=== PATIENT | female | born 1985 | race Hispanic/Latino ===

== ENCOUNTER 2018-08-18 19:22 | Emergency (ER) | payer OTHER ==
[2018-08-18 20:25] LABS: #Basophils 0.1 thou/uL (0.0-0.2); #Eosinphils 0.1 thou/uL (0.0-0.7); #Lymphocytes 3.2 thou/uL (1.20-3.40); #Neutrophils 9.1 thou/uL (1.40-6.50); %Basophils 0.8 % (0.0-1.0); %Eosinophils 0.8 % (0.0-10.0); %Lymphocytes 23.5 % (21.0-51.0); %Monocytes 7.6 % (0.0-10.0); %Neutrophils 67.4 % (42.0-75.0); Hemoglobin 11.9 g/dL (12.0-16.0); Mean Corpuscular HGB CONC 33.1 g/dL (32.0-36.0); Mean Corpuscular Hemoglobin 29.6 pg (27.0-31.0); Mean Corpuscular Volume 89.6 fL (78.0-98.0); Mean Platelet Volume 7.6 fL (7.4-10.4); Platelet Count 263 thou/uL (130-400); RBC Distribution Width 13.3 % (11.5-14.5); Red Blood Cell (RBC) Count 4.01 mill/uL (4.20-5.40); White Blood Cell (WBC) Count 13.6 thou/uL (4.8-10.8)
[2018-08-18 20:47] LABS: ALT (SGPT) 12 U/L (8-55); AST (SGOT) 15 U/L (5-34); Albumin 3.5 g/dL (3.5-5.0); Alkaline Phosphatase 86 U/L (40-150); Anion Gap 13 mmol/L (10-20); BUN (Urea Nitrogen) 7 mg/dL (7.0-18.7); Bilirubin, Total Less than 0.2 mg/dL (0.2-1.2); Calc. Creatinine Clearance 0 mL/min (70-130); Calcium 9.3 mg/dL (7.8-10.44); Carbon Dioxide 22 mmol/L (22-29); Chloride 103 mmol/L (98-107); Estimated GFR-MDRD Greater than 90; Globulin 3.5 g/dL (2.4-3.5); Glucose 122 mg/dL (70-105); Potassium 3.8 mmol/L (3.5-5.1); Sodium 134 mmol/L (136-145)
[2018-08-18] MEDS ORDERED: Acetaminophen 500 MG TAB ONE (22:58)
[2018-08-18 23:16] LABS: Bilirubin Negative (Negative); Blood, Urine Negative (Negative); Clarity CLOUDY (Clear); Glucose, Urine (Dipstick) Negative (Negative); Leukocyte Negative (Negative); Nitrite Negative (Negative); Protein, Urine (Dipstick) Negative (Neg-Trace); Specific Gravity, Urine 1.011 (1.002-1.036); Urobilinogen 0.2 mg/dL (0.2-1.0); pH, Urine 6.5 (5.0-9.0)
== END 2018-08-18 23:34 | disposition home or self-care (01) ==
LOC: ERS 19:22
DX: R51 Headache (principal)
CPT/HCPCS: 36415; 80053; 81003; 85025; 87086; 87804; 99284

== ENCOUNTER 2018-08-30 07:04 | Day surgery (SDC) | payer OTHER ==
[2018-08-30 08:25] VITALS: BMI 26.6
[2018-08-30 08:44] LABS: Bilirubin Negative (Negative); Blood, Urine Negative (Negative); Clarity CLEAR (Clear); Glucose, Urine (Dipstick) Negative (Negative); Leukocyte Negative (Negative); Nitrite Negative (Negative); Protein, Urine (Dipstick) Negative (Neg-Trace); Specific Gravity, Urine 1.004 (1.002-1.036); Urobilinogen 0.2 mg/dL (0.2-1.0); pH, Urine 6.5 (5.0-9.0)
[2018-08-30 08:46] LABS: Bacteria/HPF None Seen HPF (None Seen); Hyaline Casts/LPF 0-3 HYALINE CAST LPF (0-3 Hyaline); Pathc Cast-AUWi Flag 0.67 (0-2.49); RBC/HPF None Seen HPF (0-3); Squamous Epithelial 0-3 HPF (0-3); WBC/HPF None Seen HPF (0-3)
--- NOTE | 2018-08-30 08:47 | PDOC.FPROB ---
FMR OB H&P: HPI - History of Present Illness Chief Complaint: vaginal bleeding Indentification: 33 y/o @ 21.5 WGA by LMP c/w 9.3 wk sono History of Present Illness: Patient presents with pink vaginal bleeding that started around 6am. She reports she felt urgency to urinate and went to the bathroom and when she wiped there was some pink tinged discharge. She reports that she has been having urinary frequency and hesitancy for the past few days. Denies dysuria. Denies any other vaginal discharge. Denies any sexual intercourse as she was recently diagnosed with complete placenta previa. She denies any abdominal pain or cramping and endorses good movement. Primary Care Physician: Dr. Sepulveda - [facility] FMR OB H&P: Current - Care : 1 Para: 0 Gestational age: 21w5d Dating Criteria: LMP c/w 9.3 wk sono - OB Labs Blood type: O RH: positive Antibody Screen: negative HIV: negative RPR: negative HepBsAg: negative Rubella: immune Quad screen: negative Urine drug screen: not done Gonorrhea: negative Chlamydia: negative - Anatomy Survey Anatomy survey: Posterior placenta with complete previa. Unable to visualize arms and profile, anatomy otherwise normal FMR OB H&P: History - Past Medical History PMH: None - OB History OB History: None - MECHATRONICS TECHNICIAN History MECHATRONICS TECHNICIAN History: Denies abnormal pap smears or STI's - Surgical History Sx History: None - Social History Social History: Denies tobacco, EtOH, or drug use. - Family History Family History: Mother - DM, HTN FMR OB H&P: Medications - Current Home Medications: Medication Instructions Recorded Confirmed Type Vit 108/Iron/Folic AC 1 tab PO DAILY 08/30/18 08/30/18 History [ One Tablet] Allergies/Adverse Reactions: Allergies Allergy/AdvReac Type Severity Reaction Status Date / Time Penicillins Allergy Verified 08/30/18 08:07 FMR OB H&P: ROS - Review of Systems General: denies: fever/chills, recent trauma Eyes: denies: vision changes, double vision ENT: denies: nasal congestion, rhinorrhea, sore throat Cardiovascular: reports: palpitation. denies: chest pain, edema Respiratory: denies: cough, shortness of breath Gastrointestinal: denies: abdominal pain, nausea, vomiting, diarrhea Genitourinary (Female): reports: hesitancy, vaginal bleeding. denies: dysuria, hematuria, vaginal discharge, contractions Musculoskeletal: denies: pain, swelling Neurologic: denies: numbness, weakness Integumentary: denies: itching, rash Endocrine: denies: cold intolerance, heat intolerance Psychological: denies: depression, anxiety FMR OB H&P: Vital Signs - Maternal Vital signs: Temp 98.4, BP 113/69, HR 96, RR 20, O2 97% on RA - Heart Tones Baseline: 150 Variability: moderate Acceleration: absent Deceleration: variable (appropriate for 21 week fetus) [place] contractions every: none FMR OB H&P: Physical Exam - Physical Exam General: NAD, awake, alert and oriented HEENT: PERRLA, EOMI, MMM, conjunctiva clear, grossly normal vision, grossly normal hearing Neck: supple, no LAD Heart: RRR, normal S1/S2, no murmurs/rubs/gallops, pulses present, no edema General: CTAB, no respiratory distress, good air movement, no rales/rhonchi, no wheezing Abdomen: soft, gravid, non-tender Musculoskeletal: normal gait and station, pulses present Neurological: cranial nerves II through XII intact, no focal deficit Skin: no rash, good tugor, capillary refill <2 seconds Lymphatic: no unusual bruising or bleeding, no purpura Psychiatric: intact recent and remote memory, good judgement and insight, normal mood and affect FMR OB H&P: A/P - Problem List (1) Vaginal bleeding before 22 weeks gestation Current Visit: Yes Status: Acute Code(s): O20.9 - HEMORRHAGE IN EARLY , UNSPECIFIED Assessment and Plan: [place] vaginal spotting with known complete previa and symptoms of hesitancy and urinary frequency -Cath UA -US to re-evaluate placenta location -VP3 -20 minute FHT strip (2) Complete placenta previa nos or without hemorrhage, second trimester Current Visit: Yes Status: Acute Code(s): O44.02 - COMPLETE PLACENTA PREVIA NOS OR WITHOUT HEMOR, SECOND TRI Assessment and Plan: No gross hemorrhage, just a small amount of pink discharge -Re-evaluate placenta location with US Disposition: Monitor on L&D until work-up complete Discussion: Date/Time: 08/30/18 0845 This H&P was discussed with Dr. Jeffery who agrees with the above documentation and plan. Signature: Cyn Sepulveda MD, PGY-2 Addendum - Attending - Attending Attestation Date/Time: 08/30/18 6640 I personally evaluated the patient and discussed the management with Dr. Sepulveda I agree with the History, Examination, Assessment and Plan documented above with any addition or exceptions noted below- 33 yo @ 21 5/7 weeks presented with c/o pink tinged discharge somce this AM. Patient noted to have placenta previa on ultrasound 2 1/2 weeks ago and had been given bleeding precautions. Denies any abdominal, vaginal itching or other discharge. No recent intercourse. PMH/PSH/SH reviewed and agree with resident's documentation. Afebrile VSS. Exam repeated by me and agree with resident's findings. A/P: 1) IUP @ 21 5/7 weeks with pink vaginal discharge- ultrasound repeated today and showed low lying placenta- no previa. Will proceed with speculum exam and obtain VP3 swab. Anticipate d/c home once lab test returns.
[2018-08-30 08:48] LABS: Urine Culture Reflex No No
--- NOTE | 2018-08-30 10:42 | PDOC.EVN ---
Event Note - Event Note Event Note: UA normal, sent for culture Ultrasound showed low lying placenta, no previa per verbal report. Official read pending. Sterile speculum exam showed cervicitis with very small amount of bleeding on cervix, no bleeding coming from cervical os, no significant bleeding. -VP3 sent
--- NOTE | 2018-08-30 11:18 | ULT ---
FEXAM: OB ultrasound COMPARISON: None HISTORY: Vaginal bleeding history of placenta previa TECHNIQUE: Multiplanar grayscale and color Doppler images were obtained in a transabdominal ult rasound. FINDINGS: There is a single live intrauterine with heart rate of 163 bpm. The limited survey was within normal limits. The visualized stomach, brain, bladder and kidneys appeared within normal limits. The cord insertion was normal appearing. Estimated weight is 455+ -67 g. Average age of the fetus based off today's examination is 21 we eks 6 days. BPD 5.29 cm -- 22 weeks 0 days (62nd percentile) HC 19.71 cm -- 21 weeks and 6 days (47th percentile) AC 16.81 cm -- 21 weeks and 6 days (46th percentile) FL 3.71 cm -- 21 weeks 6 days (43rd percentile) 51st percentile based on estimated weight The placenta is posterior in location without focal abnormality. The placenta is slightly low-lying w ith the inferior tip residing approximately 2.5 cm from the cervical os. CHERIE is 13.7 cm which is norm al. IMPRESSION: Single live intrauterine with estimated age of 21 weeks and 6 days. Slightly low-lying placenta.
--- NOTE | 2018-08-30 11:54 | PDOC.EVN ---
Event Note - Event Note Event Note: Normal VP3. Reassured patient -Will d/c home with routine OB f/u
== END 2018-08-30 12:09 | disposition home health service (06) ==
LOC: LAB 07:04 → L&D/OP 12:09
PROVIDERS: ATTEND Family Medicine
DX: O44.12 Complete placenta previa with hemorrhage, second trimester (principal); Z3A.21 21 weeks gestation of pregnancy; Z88.0 Allergy status to penicillin
CPT/HCPCS: 76805; 81001; 87086; 87480; 87510; 87660; 99285; A4353

== ENCOUNTER 2018-10-10 14:47 | Emergency (ER) | payer OTHER ==
[2018-10-10] MEDS ORDERED: Lidocaine Viscous Sol 2% 15 ml UD Cup ONE (15:58)
[2018-10-10] MEDS ORDERED: Mag-Al 1200 mg/1200 mg/30 ML UDCUP ONE (15:58)
[2018-10-10 16:09] LABS: #Basophils 0.1 thou/uL (0.0-0.2); #Eosinphils 0.1 thou/uL (0.0-0.7); #Lymphocytes 2.6 thou/uL (1.20-3.40); #Neutrophils 8.3 thou/uL (1.40-6.50); %Basophils 0.4 % (0.0-1.0); %Eosinophils 0.7 % (0.0-10.0); %Lymphocytes 21.7 % (21.0-51.0); %Monocytes 8.3 % (0.0-10.0); %Neutrophils 68.9 % (42.0-75.0); Hemoglobin 11.1 g/dL (12.0-16.0); Mean Corpuscular HGB CONC 33.3 g/dL (32.0-36.0); Mean Corpuscular Hemoglobin 30.2 pg (27.0-31.0); Mean Corpuscular Volume 90.7 fL (78.0-98.0); Mean Platelet Volume 7.4 fL (7.4-10.4); Platelet Count 253 thou/uL (130-400); RBC Distribution Width 12.7 % (11.5-14.5); Red Blood Cell (RBC) Count 3.66 mill/uL (4.20-5.40); White Blood Cell (WBC) Count 12.1 thou/uL (4.8-10.8)
[2018-10-10 16:34] LABS: ALT (SGPT) 11 U/L (8-55); AST (SGOT) 16 U/L (5-34); Albumin 3.4 g/dL (3.5-5.0); Alkaline Phosphatase 103 U/L (40-150); Anion Gap 14 mmol/L (10-20); BUN (Urea Nitrogen) 7 mg/dL (7.0-18.7); Bilirubin, Total 0.2 mg/dL (0.2-1.2); Calc. Creatinine Clearance 0 mL/min (70-130); Calcium 9.2 mg/dL (7.8-10.44); Carbon Dioxide 20 mmol/L (22-29); Chloride 106 mmol/L (98-107); Estimated GFR-MDRD Greater than 90; Glucose 127 mg/dL (70-105); Potassium 3.9 mmol/L (3.5-5.1); Protein, Total 6.4 g/dL (6.0-8.3); Sodium 136 mmol/L (136-145)
--- NOTE | 2018-10-10 17:04 | ULT ---
EXAM: Bilateral lower extremity venous ultrasound HISTORY: Bilateral lower extremity pain and edema COMPARISON: None TECHNIQUE: Multiplanar grayscale and color Doppler images were obtained in a bilateral lower extremit y venous ultrasound. Spectral analysis of the Doppler waveforms were performed. FINDINGS: The bilateral common femoral vein, profunda femoral veins, superficial femoral veins, and p opliteal veins are normal in appearance without visible thrombus. These vessels demonstrate normal compression, flow, and augmentation. The bilateral posterior tibial veins, profunda femoral veins and greater saphenous veins are patent w ithout evidence of DVT. IMPRESSION: No evidence of DVT.
== END 2018-10-10 17:40 | disposition home or self-care (01) ==
LOC: ERS 14:47
DX: O99.613 Diseases of the digestive system complicating pregnancy, third trimester (principal); K21.9 Gastro-esophageal reflux disease without esophagitis
CPT/HCPCS: 36415; 80053; 84484; 85025; 93005; 93970; 94760

== ENCOUNTER → 2018-12-29 | Day surgery (SDC) | payer OTHER, SELFPAY ==
[~2018-12-29] MED LIST: hydrALAZINE 20 MG/ML VIAL SLOW IVP PRN
[2018-12-29 21:31] VITALS: BP 120/77; TEMP 99.5; BMI 33.4
--- NOTE | 2018-12-29 22:15 | PDOC.LDHP ---
Labor and Delivery H&P Chief complaint: other (Vaginal Bleeding) HPI: The patient is a 33 y/o female at 39W dated by 9.3W US who presents to L&D after an episode of scant vaginal bleeding earlier this afternoon. The patient was Greek-only, but her was with her in the room at the time of evaluation and assisted with translation. The patient states that she presented to [facility] earlier this afternoon for a appointment, but was concerned by a small amount of bleeding that occurred several hours afterward. She took a picture of the bleeding with her cell phone , and it appeared to be light, without clots or mucous, and approximately the size of one quarter. This is the first episode of bleeding that she patient has noticed. Further review of her chart revealed that she had her membranes stripped earlier in the day at her appointment. The patient reports feeling well throughout her , and notes that she feels that the baby's movement has been adequate and continuous, despite this being her first . She denies any worrisome symptoms such as headache, changes in vision , chest pain, shortness of breath, contractions or sharp/sporadic abdominal pain , dysuria, vaginal discharge, sudden gush of vaginal fluid, or recent trauma or mechanical falls. She patient had a documented placenta previa at her 2nd trimester US, but this was resolved by a repeat 32W US. She is GBS negative, was measured at 2/50%/-3 on 12/29/18, and review of heart tracings during the evaluation were reassuring, with baseline heart rate in the 140s to 150s with good variability, accelerations, and no decelerations. Current gestational age (weeks): 39 Due date: 01/05/19 Dating criteria: last menstrual period, first trimester ultrasound Grav: 1 Para: 0 OB History Details: Adequate and consistent care provided by [facility]. GBS-, HIV-, RPR-, GC/Chlamydia-. Current complications: none Abnormal US findings: No Current medications: none Allergies/Adverse Reactions: Allergies Allergy/AdvReac Type Severity Reaction Status Date / Time Penicillins Allergy Severe Anaphylaxis Verified 12/29/18 21:25 - Physical Exam General: NAD, resting Heart: RRR Lungs: nonlabored breathing Abdomen: gravid Extremeties: trace edema FHT: category 1 - OB Labs Blood type: O RH: positive Antibody Screen: negative HIV: negative RPR: negative HEPSAg: negative - Assessment Scant vaginal bleeding 2/2 to membrane stripping on 12/29/18 - Plan -: DC home. Addendum - Attending - Attending Attestation Date/Time: 12/30/182038 I personally evaluated the patient and discussed the management with Dr. Kinney I agree with the History, Examination, Assessment and Plan documented above with any addition or exceptions noted below. 33y at 39w presenting with scant bleeding following cervical exam earlier in the day. No continued bleeding. No large clots or gushes of blood. No contractions, LOF. +FM NST reviewed and reactive. Baseline 150s, moderate variability, accels present, no decels. Photographs of blood reviewed and show a scant amount of light pink blood on tissues. Reassurance offered. October d/c to home. Strict return precautions reviewed
== END ==
LOC: L&D/OP 20:58
PROVIDERS: ATTEND Family Medicine
DX: O46.8X3 Other antepartum hemorrhage, third trimester (principal); Z3A.39 39 weeks gestation of pregnancy; Z88.0 Allergy status to penicillin
CPT/HCPCS: 99282

== ENCOUNTER 2018-12-31 19:44 | Day surgery (SDC) | payer SELFPAY ==
[2018-12-31 20:25] VITALS: BP 140/88; TEMP 98.9
--- NOTE | 2018-12-31 20:54 | PDOC.FPRHP ---
- Allergies/Adverse Reactions Allergies Allergy/AdvReac Type Severity Reaction Status Date / Time Penicillins Allergy Severe Anaphylaxis Verified 12/31/18 20:26 - Home Medications Medication Instructions Recorded Confirmed Type Mv-Mn/Iron/FA/Herbal/Digestive 1 tab PO DAILY 08/30/18 08/30/18 History [ One Tablet] - History PMHx: PSHx: FHx: Social: - Vital signs BP: [] HR: [] RR: [] Tmax: [] Pox: []% on [] Wt: [] FMR H&P: Upper Level - Plan Date/Time: 12/31/182053 I, [], have evaluated this patient and agree with findings/plan as outlined by international trade analyst resident. Pertinent changes/additions are listed here.
--- NOTE | 2018-12-31 20:54 | PDOC.FPROB ---
Addendum entered and electronically signed by Rimma Houston MD 12/31/18 23:27: Pt without change after 3 hours. Contractions have stopped. Gave ER precautions for return. Pt agreeable to plan. Original Note: FMR OB H&P: HPI - History of Present Illness Chief Complaint: contractions History of Present Illness: 33 yo G1 @ 39.2wks presents with painful contractions q 5-7 minutes at home. She has normal movement, denies vaginal bleeding, and has had scant clear discharge. She denies gush of fluid or loss of mucus plug. She had 2 good bowel movements at home before coming in. EDC: 01/05/2019. Primary Care Physician: SUMA Andersen FMR OB H&P: Current - Care : 1 Para: 0 Gestational age: 39.2 Due date: 01/05/19 Dating Criteria: LMP & 9.3wk sono - OB Labs Blood type: O RH: positive Antibody Screen: negative HIV: negative RPR: negative HepBsAg: negative Rubella: immune Quad screen: negative Gonorrhea: negative Chlamydia: negative 1 hour gtt: failed 3 hour GTT: passed GBS: negative H&H: 11 & 33 on 10/10/18 Platelets: 253 (10/10/18) Additional labs: tsh normal - Anatomy Survey Anatomy survey: hx of placenta previa, completely resolved. 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 History: pap normal in [facility] - Surgical History Sx History: None - Social History Social History: denies smoking, alcohol, drug use - Family History Family History: Mom: DM, HTN FMR OB H&P: Medications - Current Home Medications: Medication Instructions Recorded Confirmed Type Mv-Mn/Iron/FA/Herbal/Digestive 1 tab PO DAILY 08/30/18 08/30/18 History [ One Tablet] Allergies/Adverse Reactions: Allergies Allergy/AdvReac Type Severity Reaction Status Date / Time Penicillins Allergy Severe Anaphylaxis Verified 12/31/18 20:26 FMR OB H&P: ROS - Review of Systems General: denies: fever/chills, weight/appetite/sleep changes, night sweats, recent trauma Eyes: denies: eye pain, vision changes ENT: denies: nasal congestion, rhinorrhea Cardiovascular: denies: chest pain, palpitation Respiratory: denies: cough, congestion, shortness of breath Gastrointestinal: denies: abdominal pain, indigestion, bloating, cramping, nausea, vomiting, diarrhea, constipation Genitourinary (Female): denies: incontinence, dysuria Musculoskeletal: denies: pain, stiffness Neurologic: denies: numbness, syncope, weakness, loss of counsciousness Integumentary: denies: itching, rash, lesions Breast: denies: lumps, bumps Psychological: denies: depression, anxiety FMR OB H&P: Vital Signs - Maternal Vital signs: Vital Signs - First Documented Temp Pulse Resp BP Pulse Ox 98.9 F 97 18 140/88 100 12/31/18 20:20 12/31/18 20:20 12/31/18 20:20 12/31/18 20:20 12/31/18 20:20 - Heart Tones Baseline: 140 Variability: moderate Acceleration: present Deceleration: absent Category: category 1 [place] contractions every: 2-3 minutes FMR OB H&P: Physical Exam - Physical Exam General: NAD, awake, alert and oriented HEENT: normocephalic and atraumatic, PERRLA, EOMI, MMM, conjunctiva clear, no scleral icterus Neck: supple, FROM Chest: non-tender to palpation, no lesions Breast: symmetric, non-tender Heart: RRR, normal S1/S2, no murmurs/rubs/gallops, pulses present General: CTAB, no respiratory distress, good air movement, no rales/rhonchi Abdomen: soft, gravid, non-tender Musculoskeletal: normal gait and station, pulses present, FROM in all four extremities Skin: no rash, good tugor Psychiatric: intact recent and remote memory, good judgement and insight, normal mood and affect FMR OB H&P: A/P - Problem List (1) Term Status: Acute Code(s): Z34.90 - ENCNTR FOR SUPRVSN OF NORMAL , UNSP, UNSP TRIMESTER (2) Anemia affecting in third trimester Status: Acute Code(s): O99.013 - ANEMIA COMPLICATING , THIRD TRIMESTER (3) Glucose intolerance Status: Acute Code(s): E74.39 - OTHER DISORDERS OF INTESTINAL CARBOHYDRATE ABSORPTION Disposition: Dispo: depends on next labor check Discussion: Date/Time: 12/31/182053 A/P: Suspected Latent Labor- will obs on L&D, encourage ambulation, and recheck for cervical change in 2 hours. Addendum - Attending - Attending Attestation Date/Time: 01/01/19 7353 I personally evaluated the patient and discussed the management with Dr. Bah I agree with the History, Examination, Assessment and Plan documented above with any addition or exceptions noted below. No cervical roving changer 2 hours. Latent labor. D/C to home with strict return precautions.
[2018-12-31] MEDS ORDERED: hydrALAZINE 20 MG/ML VIAL SLOW IVP PRN (21:12)
== END 2018-12-31 23:00 | disposition home or self-care (01) ==
LOC: L&D/OP 19:44
PROVIDERS: ATTEND Family Medicine
DX: O47.1 False labor at or after 37 completed weeks of gestation (principal); O99.013 Anemia complicating pregnancy, third trimester; O99.283 Endocrine, nutritional and metabolic diseases complicating pregnancy, third trimester; E74.39 Other disorders of intestinal carbohydrate absorption; Z88.0 Allergy status to penicillin; Z3A.39 39 weeks gestation of pregnancy
CPT/HCPCS: 99283

== ENCOUNTER 2019-01-08 22:27 | Inpatient (IN) | payer MEDICAID, OTHER, SELFPAY ==
--- NOTE | 2019-01-08 23:26 | PDOC.FPROB ---
FMR OB H&P: HPI - History of Present Illness Chief Complaint: IOL, full-term elective History of Present Illness: 33 yo @ 40.3wks presents for elective IOL at full-term. 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 - Family History Family History: Mom: DM and HTN FMR OB H&P: Medications - Current Home Medications: Medication Instructions Recorded Confirmed Type Mv-Mn/Iron/FA/Herbal/Digestive 1 tab PO DAILY 08/30/18 01/08/19 History [ One Tablet] Allergies/Adverse Reactions: Allergies Allergy/AdvReac Type Severity Reaction Status Date / Time Penicillins Allergy Severe Anaphylaxis Verified 01/08/19 23:21 FMR OB H&P: ROS - Review of Systems General: denies: fever/chills, weight/appetite/sleep changes, night sweats Eyes: denies: eye pain, vision changes ENT: denies: nasal congestion, rhinorrhea Cardiovascular: denies: chest pain, palpitation, edema Gastrointestinal: denies: abdominal pain, indigestion, bloating, cramping Genitourinary (Female): denies: incontinence, dysuria, hematuria Musculoskeletal: denies: pain, stiffness Neurologic: denies: numbness, syncope, seizures Integumentary: denies: itching, rash, lesions Endocrine: denies: cold intolerance, heat intolerance Psychological: denies: depression, anxiety FMR OB H&P: Vital Signs - Maternal Vital signs: Vital Signs - First Documented Temp Pulse Resp BP 99.9 F H 104 H 20 131/83 01/08/19 23:13 01/08/19 23:13 01/08/19 23:13 01/08/19 23:13 - Heart Tones Baseline: 150 Variability: moderate Acceleration: present Deceleration: absent Category: category 1 [place] contractions every: 5min FMR OB H&P: Physical Exam - Physical Exam General: NAD, awake, alert and oriented HEENT: normocephalic and atraumatic, PERRLA, MMM, grossly normal vision, grossly normal hearing Neck: supple, FROM Chest: non-tender to palpation Heart: RRR, normal S1/S2, no murmurs/rubs/gallops General: CTAB, no respiratory distress, good air movement Abdomen: soft, gravid, non-tender Musculoskeletal: normal gait and station, pulses present Skin: no rash, good tugor Lymphatic: no unusual bruising or bleeding, no purpura Psychiatric: intact recent and remote memory, good judgement and insight - Pelvic Exam Vulva: normal hair distribution SVE: 3/50/-2 Magana score: 6 Membranes: intact Presentation: cephalic FMR OB H&P: A/P - Problem List (1) Term Current Visit: No Status: Acute Code(s): Z34.90 - ENCNTR FOR SUPRVSN OF NORMAL , UNSP, UNSP TRIMESTER (2) Anemia affecting in third trimester Current Visit: No Status: Acute Code(s): O99.013 - ANEMIA COMPLICATING , THIRD TRIMESTER (3) Glucose intolerance Current Visit: No Status: Acute Code(s): E74.39 - OTHER DISORDERS OF INTESTINAL CARBOHYDRATE ABSORPTION Discussion: Date/Time: 01/08/19 2324 33 yo G1 @40.3wks admitted for elective IOL at full-term. #SIUP- - magana score of 7 -IOL with pitocin -will admit, order labs, start pitocin, monitor via NST and repeat cervical check in 2 hours #Anemia of - aware, will check H&H after delivery #Glucose intolerance - aware, no current management needed at this time. This H&P was discussed with Dr. Mehta and Dr. Bah who agree with the above documentation and plan.
[2019-01-08] MEDS ORDERED: Methylergonovine 0.2 MG/ML VIAL IM PRN (23:51)
[2019-01-08] MEDS ORDERED: Misoprostol 200 MCG TAB PR PRN (23:51)
[2019-01-08] MEDS ORDERED: Lidocaine 1% (PF) 30 ML VIAL SC PRN (23:51)
[2019-01-08] MEDS ORDERED: Diphenoxylate HCl/Atropine Tablet PO PRN (23:51)
[2019-01-08] MEDS ORDERED: Ibuprofen 800 MG TAB PO PRN (23:51)
[2019-01-08] MEDS ORDERED: NS / Oxytocin 40 units/1000ml 1,000 ML IV PRN (23:51)
[2019-01-08] MEDS ORDERED: Carboprost 250 MCG/ML AMP IM PRN (23:51)
[2019-01-08] MEDS ORDERED: Ondansetron PF 4 MG/2 ML Vial IVP PRN (23:54)
[2019-01-08] MEDS ORDERED: Butorphanol Tartrate 1 MG/ML VIAL SLOW IVP PRN (23:54)
[2019-01-08] MEDS ORDERED: hydrALAZINE 20 MG/ML VIAL SLOW IVP PRN (23:54)
[2019-01-08] MEDS ORDERED: Acetaminophen 500 MG TAB PO PRN (23:54)
[2019-01-08] MEDS ORDERED: Promethazine HCl 25 MG/ML VIAL IM PRN (23:54)
[2019-01-08] MEDS ORDERED: NS w/ Oxytocin 10 units 500 ML IV SCH (23:59)
[2019-01-08] MEDS ORDERED: Misoprostol 100 MCG TAB VAG SCH (23:59)
[2019-01-09 01:04] LABS: Hemoglobin 12.2 g/dL (12.0-16.0); Mean Corpuscular HGB CONC 33.2 g/dL (32.0-36.0); Mean Corpuscular Hemoglobin 30.5 pg (27.0-31.0); Mean Corpuscular Volume 91.9 fL (78.0-98.0); Mean Platelet Volume 8.2 fL (7.4-10.4); Platelet Count 224 thou/uL (130-400); RBC Distribution Width 13.6 % (11.5-14.5); Red Blood Cell (RBC) Count 3.99 mill/uL (4.20-5.40); White Blood Cell (WBC) Count 10.4 thou/uL (4.8-10.8)
[2019-01-09] MEDS: Lactated Ringer's 1,000 ML IV SCH ×5 (01:15→22:36)
[2019-01-09 01:43] LABS: Hep B Surf Ag Non-Reactive S/CO (NonReactive)
[2019-01-09] MEDS ORDERED: Fentanyl 4 mcg/Bup 0.1% Cadd 100 ML ONE ×2 (04:16→13:58)
--- NOTE | 2019-01-09 04:45 | PDOC.LDPN ---
Labor & Delivery Progress Note - Subjective Subjective: comfortable, painful contractions, vaginal pressure - Objective General: NAD, breathing through contractions Uterine fundus: non tender SVE: @ 0430 Dilation: 4/75%/-2 FHT: category 1 [place] contractions every: 4min Procedures: Getting epidural shortly - Assessment (1) Term Code(s): Z34.90 - ENCNTR FOR SUPRVSN OF NORMAL , UNSP, UNSP TRIMESTER Status: Acute Comment: Elective induction for a 33 y/o @ 40.4 WGA Pitocin has been titrated up to 2 and then stopped due to late decelerations. SVE showed progress from 4->5 -AROM with clear fluid @ 0945 -Check cervix in 2 hours -Titrate pitocin as tolerated (2) Anemia affecting in third trimester Code(s): O99.013 - ANEMIA COMPLICATING , THIRD TRIMESTER Status: Acute (3) Glucose intolerance Code(s): E74.39 - OTHER DISORDERS OF INTESTINAL CARBOHYDRATE ABSORPTION Status : Acute Plan: continue plan of care, pitocin for augmentation, other -: IOL, term IUP -continue current plan of care. -starting pitocin after epidural -recheck at 0645 or 2hrs after pitocin. Addendum - Attending - Attending Attestation Date/Time: 01/09/19 1250 I personally evaluated the patient and discussed the management with Dr. Mehta. I agree with the History, Examination, Assessment and Plan documented above with any addition or exceptions noted below.
[2019-01-09 05:06] LABS: Syphilis Antibody Nonreactive (Nonreactive); Syphilis Antibody Index 0.05 S/CO (<1.00 Non-Reactive)
[2019-01-09] MEDS: Fentanyl 4 mcg/Bupivacaine 0.1% Cassette 100 ML EPIDURAL SCH ×2 (05:45→14:06)
[2019-01-09] MEDS ORDERED: Lactated Ringer's 500 ML IV PRN (05:55)
[2019-01-09] MEDS ORDERED: Ondansetron PF 4 MG/2 ML Vial IVP PRN ×2 (05:55→16:02)
[2019-01-09] MEDS ORDERED: Promethazine HCl 25 MG/ML VIAL IM PRN ×2 (05:55→16:02)
[2019-01-09] MEDS ORDERED: diphenhydrAMINE 50 MG/ML VIAL IVP PRN ×2 (05:55→16:02)
[2019-01-09] MEDS ORDERED: Naloxone HCl 0.4 mg/ml Vial IVP PRN ×4 (05:55→16:02)
[2019-01-09] MEDS ORDERED: ePHEDrine/0.9% NaCl/PF SYRINGE 50 mg/10 ml SLOW IVP PRN (05:55)
[2019-01-09] MEDS ORDERED: Communication Order-Pharmacy FS SCH ×2 (06:00→16:15)
[2019-01-09] MEDS ORDERED: Ketorolac Tromethamine 30 MG/ML VIAL ONE ×2 (09:21→15:18)
[2019-01-09] MEDS ORDERED: Ondansetron PF 4 MG/2 ML Vial ONE ×2 (09:21→15:18)
[2019-01-09] MEDS ORDERED: Misoprostol 200 MCG TAB ONE (09:24)
--- NOTE | 2019-01-09 09:53 | PDOC.LDPN ---
Labor & Delivery Progress Note - Subjective Subjective: comfortable - Objective Vital signs reviewed and normal: yes General: NAD Uterine fundus: non tender SVE: @ [address] Sepulveda Dilation: /-1 FHT: category 2 (has had few late decelerations whenever pitocin is running), variability present [place] contractions every: 4 min AROM: clear fluid Resuscitative measures: maternal IV fluids, maternal position change - Assessment (1) Term Code(s): Z34.90 - ENCNTR FOR SUPRVSN OF NORMAL , UNSP, UNSP TRIMESTER Status: Acute Comment: Elective induction for a 33 y/o @ 40.4 WGA Pitocin has been titrated up to 2 and then stopped due to late decelerations. SVE showed progress from 4->5 -AROM with clear fluid @ 0945 -Check cervix in 2 hours -Titrate pitocin as tolerated Plan: pitocin for augmentation Addendum - Attending - Attending Attestation Date/Time: 01/09/19 6938 I personally evaluated the patient and discussed the management with Dr. Sepulveda. I agree with the History, Examination, Assessment and Plan documented above with any addition or exceptions noted below. Cat 1 strip prior to AROM, but did have lates prior to this. Will continue to observe and proceed to OR pending continued reassessment of FHTs.
[2019-01-09] MEDS ORDERED: Bupivacaine/Epinephrine 0.25% 30 ML VIAL ONE (11:11)
[2019-01-09] MEDS ORDERED: Bupivacaine HCl 0.5%/Epinephrine 1:200,000/PF 30 ml Vial ONE (11:11)
[2019-01-09] MEDS ORDERED: Bicitra 30 ML UDCUP ONE (14:37)
--- NOTE | 2019-01-09 14:43 | PDOC.LDPN ---
Labor & Delivery Progress Note - Subjective Subjective: comfortable - Objective Vital signs reviewed and normal: yes General: NAD Uterine fundus: non tender SVE: 5/70/-1 FHT: category 2 (baseline 160/minimal variability/intermittent late decelerations) [place] contractions every: 2-4 min - Assessment (1) Term Code(s): Z34.90 - ENCNTR FOR SUPRVSN OF NORMAL , UNSP, UNSP TRIMESTER Current Visit: No Status: Acute Comment: Elective induction for a 33 y/o @ 40.4 WGA Patient has not progressed and have been unable to titrate pitocin up due to persistent category 2 FHT Decision made at 1440 for due to failure to progress with NRFHT
[2019-01-09] MEDS ORDERED: CEFAZOLIN 2 GM, IV Admixture Fee-Chemo 1 UNITS in Sodium Chloride 0.9% 100 ML IVPB SCH (14:45)
[2019-01-09] MEDS ORDERED: Bicitra 30 ML UDCUP PO SCH (14:45)
[2019-01-09] MEDS ORDERED: Oxytocin 10 UNITS/ML VIAL ONE ×2 (15:18→16:35)
[2019-01-09] MEDS ORDERED: Lidocaine 2% 10 ML INJ ONE (15:18)
[2019-01-09] MEDS ORDERED: Azithromycin 500 MG VIAL ONE ×2 (15:49→15:51)
[2019-01-09] MEDS ORDERED: MORPHINE 5 MG/10 ML PF VIAL ONE (16:02)
[2019-01-09] MEDS ORDERED: Meperidine HCl/PF 25 MG/ML VIAL SLOW IVP PRN (16:02)
[2019-01-09] MEDS ORDERED: L&D-Morphine 4 MG/ML VIAL SLOW IVP PRN (16:02)
[2019-01-09] MEDS ORDERED: Naloxone HCl 0.4 mg/ml Vial IV PRN (16:02)
[2019-01-09] MEDS ORDERED: HYDROmorphone 2 MG/ML VIAL SLOW IVP PRN (16:02)
[2019-01-09] MEDS ORDERED: Ondansetron HCl/PF 4 MG/2 ML Vial IVP PRN (16:02)
[2019-01-09] MEDS ORDERED: Promethazine HCl 25 MG SUPP PR PRN (16:02)
[2019-01-09] MEDS ORDERED: Ketorolac Tromethamine 30 MG/ML VIAL IVP SCH (16:15)
[2019-01-09] MEDS ORDERED: Methylergonovine 0.2 MG/ML VIAL ONE (16:32)
[2019-01-09] MEDS ORDERED: Carboprost 250 MCG/ML AMP ONE (16:39)
[2019-01-09] MEDS ORDERED: Midazolam HCl 2 mg/2 ml Vial ONE (16:46)
--- NOTE | 2019-01-09 17:57 | PDOC.EVN ---
Event Note - Event Note Event Note: This is a 33 yo female @40.4 weeks underwent a 1* LCT C/S via Pfann[place]ste[place] incision for failure to progress, peristent cat 2 strip and intolerance of labor under my dierect supervisiona nd with my assistance. Viable female infant delivered invtx presentation and OP position. Apgars 8/9. Mild uterine atony noted given Methergine, hemabate with resolution. QBL 1330 mL. Residents: [place].
--- NOTE | 2019-01-09 18:13 | PDOC.OPDEL ---
OB Operative/Delivery Note - Additional Findings/Plan Compilations/Other Findings: Date of Procedure: 01/09/19 @ 1557 Resident Surgeon: Cyn Sepulveda MD Grievance Coordinator Surgeon: Jing Hickey DO Attending Surgeon: Mariella Jeffery MD Procedure: Primary low transverse caesarean section Preoperative Diagnosis: 1)Term intrauterine 2)Failure to Progress 3)Persistent category 2 heart tones 4) intolerance of labor Postoperative Diagnosis: 1)Term intrauterine 2)Failure to Progress 3)Persistent category 2 heart tones 4) intolerance of labor 5)Post- hemorrhage Anesthesia: epidural/spinal Indications: The patient is a 33 year old female at 40.4 weeks gestation who presents for an elective induction and had failure to progress with intolerance of labor and a persistent category two strip, so the decision was made to proceed with pLTCS. Procedure in Detail: After risks, benefits, and alternatives were explained to the patient, she gave informed consent. Pre-operative antibiotics included Cefazolin 2 gram IV, Azithromycin 500mg IV. The patient was taken to the operating room after anesthesia bolused epidural. She was placed in the supine position with a left tilt and prepped and draped in usual sterile fashion. A Pfannenstiel incision was made with a scalpel and carried down to the level of the fascia which was sharply nicked. The fascial cut was extended bilaterally manually. The inferior and superior edges of the cut fascial edges were elevated with Jaqueline clamps and the underlying rectus muscles were sharply and bluntly dissected free. The recti were divided digitally and retracted manually. The peritoneum was entered bluntly and retracted manually. Jackson O retractor was placed. Bladder flap was created with Metzenbaum scissors. A low transverse score was made with the scalpel and the uterus was entered in the midline with the scalpel. Minimal fluid was seen. The hysterotomy was extended manually. The infant was noted to be vertex and was delivered by fundal pressure in the transverse position. Mouth and nares were bulb suctioned. Cord clamped and cut and grossly normal female infant was handed to waiting nurse. Cord blood was obtained. Placenta was spontaneously delivered, found to be intact with 3 vessel cord and sent for pathology. The endometrium was curetted with a dry lap. The uterus was closed with a running locking #1 Monocryl suture followed by a running non-locking #1 Monocryl imbricating suture. Following this there were several areas from the hysterotomy and the serosa that were bleeding. A figure of eight suture was placed with # vicryl and a few of the areas were cauterized with the bovie. Initially the uterus was firm, but at this time it was noted to be boggy. The pitocin was running so 0.2mg methergine was given IM. Pressure was held over the hysterotomy and at this time the Jackson O was removed and the uterus was externalized. The bladder blade was placed and another [id number] suture was placed over the hysterotomy with # 1 monocryl. The abdomen was irrigated with saline and suctioned free of clots. The uterus remained boggy so 0.25mg hemabate was given IM. Following this, the fundus was firm. The bleeding areas were again cauterized with the bovie. The uterus was internalized and floseal was placed over the hysterotomy. At this time the hysterotomy appeared hemostatic. The fascia was closed with a running non-locking 0-Vicryl suture. The subcutaneous tissue was irrigated and there were a few bleeders that were cauterized with the bovie. The subcutaneous tissue was approximated with interrupted 3-0 plain gut. The skin was closed with 4-0 monocryl and a pressure dressing was placed. All counts were correct. The patient tolerated the procedure well and was taken to the recovery room in stable condition. Quantitative Blood Loss: 1330 ml Complications: hemorrhage Specimens: Cord blood sent to lab for blood type Findings: Grossly normal female infant with Apgars of 8&9. Grossly normal placenta with 3 vessel cord sent to lab for pathology Drains: Ruggiero to gravity draining clear urine Post delivery plan: routine recovery
[2019-01-09] MEDS ORDERED: HYDROcodone/Acetaminophen 5/325 mg Tablet PO PRN (21:07)
[2019-01-09] MEDS ORDERED: Lanolin Ointment 7 GM TUBE TOP PRN (21:07)
[2019-01-09] MEDS ORDERED: NS / Oxytocin 40 units/1000ml 1,000 ML IV SCH (21:07)
[2019-01-09] MEDS ORDERED: hydrALAZINE 20 MG/ML VIAL SLOW IVP PRN (21:07)
[2019-01-09] MEDS ORDERED: Adacel (T-DAP) 0.5 ML SYRINGE IM ONE (21:07)
[2019-01-09] MEDS ORDERED: diphenhydrAMINE 25 MG CAP PO PRN (21:07)
--- NOTE | 2019-01-09 21:27 | PDOC.OBPPN ---
FMR OB PN: Subj - Interval History Hospital Day: 2 Day: 0 Chief Complaint: 33 yo s/p pLTCS at 1557 Indentification: 7/10 pain; would like to try some orange juice FMR OB PN: Obj - Maternal Vital signs: BP: 126/72 HR: 97 O2sat: 98% on RA T:98.4 FMR OB PN: Exam - Physical Exam General: NAD, awake, alert and oriented HEENT: normocephalic and atraumatic Heart: other (tachycardic; systolic murmur) General: CTAB, no respiratory distress Abdomen: soft (pressure dressing in place) Skin: no rash : other (1+ edema) FMR OB PN: Data - Labs Lab results: Laboratory Results - last 24 hr 01/09/19 01/09/19 01/09/19 00:53 00:53 00:53 WBC RBC Hgb Hct MCV MCH MCHC RDW Plt Count MPV Syphilis IgG/IgM Ab Nonreactive Hep Bs Antigen Non-Reactive Blood Type O POSITIVE Antibody Screen NEGATIVE 01/09/19 01/09/19 00:53 03:00 WBC 10.4 RBC 3.99 L Hgb 12.2 Hct 36.7 MCV 91.9 MCH 30.5 MCHC 33.2 RDW 13.6 Plt Count 224 MPV 8.2 Syphilis IgG/IgM Ab Hep Bs Antigen Blood Type O POSITIVE Antibody Screen FMR OB PN: A/P - Problem List (1) Term Current Visit: No Status: Acute Code(s): Z34.90 - ENCNTR FOR SUPRVSN OF NORMAL , UNSP, UNSP TRIMESTER Comment: Elective induction for a 33 y/ o @ 40.4 WGA Patient has not progressed and have been unable to titrate pitocin up due to persistent category 2 FHT Decision made at 1440 for due to failure to progress with NRFHT (2) Anemia affecting in third trimester Current Visit: No Status: Acute Code(s): O99.013 - ANEMIA COMPLICATING , THIRD TRIMESTER (3) Glucose intolerance Current Visit: No Status: Acute Code(s): E74.39 - OTHER DISORDERS OF INTESTINAL CARBOHYDRATE ABSORPTION (4) Term delivered Current Visit: Yes Status: Acute Code(s): O80 - ENCOUNTER FOR FULL-TERM UNCOMPLICATED DELIVERY (5) S/P primary low transverse Current Visit: Yes Status: Acute Code(s): Z98.891 - HISTORY OF UTERINE SCAR FROM PREVIOUS SURGERY Discussion: Date/Time: 01/09/192124 33 yo G1 s/p pLTCS to an LGA . #sIUP, delivered via pLTCS- -pph s/p hemabate and methergine, now with minimal bleeding; H/H in the am -advance diet as tolerated, monitor I/O's as urine output was mildly low -pain control per anesthesia orders for first 12 hours; pt endorses 7/10 pain, discussed with nurse to notify anesthesia for orders of morphine prn -UOP: 150ml since, continue to monitor #systolic murmur with mild tachycardia- -may be 2/2 pph after delivery -will continue to monitor, currenlty afebrile, bp wnl, and saturating well, denies shortness of breath -will check a bnp -trace pitting edema #glucose intolerance- -aware #anemia of - -po iron bid Marisela Tellez MD, PGY-3 Addendum - Attending - Attending Attestation Date/Time: 01/10/19 1006 I personally evaluated the patient and discussed the management with Dr. Tellez. I agree with the History, Examination, Assessment and Plan documented above with any addition or exceptions noted below.
[2019-01-09] MEDS ORDERED: Morphine 2 MG/ML SYRINGE SLOW IVP PRN (22:09)
[2019-01-10] MEDS: Ketorolac Tromethamine 30 MG/ML VIAL IVP PRN ×2 (01:05→08:59)
[2019-01-10] MEDS: Docusate Calcium (SURFAK) 240 MG CAP PO SCH ×3 (01:53→23:14)
[2019-01-10] MEDS: Ibuprofen 800 MG TAB PO SCH ×4 (01:53→23:12)
[2019-01-10] MEDS: Ferrous Sulfate 325 MG TAB PO SCH ×3 (01:53→23:14)
[2019-01-10 06:49] LABS: Hemoglobin 9.5 g/dL (12.0-16.0); Mean Corpuscular HGB CONC 32.6 g/dL (32.0-36.0); Mean Corpuscular Hemoglobin 30.3 pg (27.0-31.0); Mean Corpuscular Volume 92.9 fL (78.0-98.0); Mean Platelet Volume 7.9 fL (7.4-10.4); Platelet Count 176 thou/uL (130-400); RBC Distribution Width 13.4 % (11.5-14.5); Red Blood Cell (RBC) Count 3.13 mill/uL (4.20-5.40); White Blood Cell (WBC) Count 18.4 thou/uL (4.8-10.8)
[2019-01-10] MEDS ORDERED: Sodium Chloride 0.9% 10 ML ONE (08:56)
[2019-01-10] MEDS: Prenatal Vitamin 1 TAB PO SCH (08:58)
[2019-01-10] MEDS: Simethicone Chewable 80 MG TAB PO PRN ×3 (08:58→23:14)
[2019-01-10] MEDS ORDERED: DIGESTIVE PO SCH (09:00)
[2019-01-10] MEDS ORDERED: HERBAL PO SCH (09:00)
[2019-01-10] MEDS ORDERED: MV MN PO SCH (09:00)
[2019-01-10] MEDS ORDERED: [UNRECOGNIZED DRUG - OTHER] PO SCH (09:00)
[2019-01-10] MEDS ORDERED: IRON PO SCH (09:00)
--- NOTE | 2019-01-10 09:17 | PDOC.OBPPN ---
FMR OB PN: Subj - Interval History Hospital Day: 2 Day: 1 Chief Complaint: s/p pLTCS Indentification: 33 year old G1 now P1 Interval History: No acute events. Mild abdominal pain. FMR OB PN: Obj - Maternal Vital signs: BP: [] HR: [] RR: [] Tmax: [] Pox: []% on [] Wt: [] - Urine output I&O: 01/09/19 01/10/19 01/11/19 06:59 06:59 06:59 Intake Total 1485 Output Total 1110 Balance 375 FMR OB PN: Data - Labs Lab results: Laboratory Results - last 24 hr 01/10/19 01/10/19 06:30 06:30 WBC 18.4 H RBC 3.13 L Hgb 9.5 L Hct 29.1 L MCV 92.9 MCH 30.3 MCHC 32.6 RDW 13.4 Plt Count 176 MPV 7.9 B-Natriuretic Peptide 77.7 FMR OB PN: A/P Discussion: Date/Time: 01/10/19915 This H&P was discussed with [] and [] who agree with the above documentation and plan.
--- NOTE | 2019-01-10 09:23 | PDOC.PP ---
Post Progress Note Post Day #: 1 Subjective: Patient doing well. No significant overnight events. Patient ordered breakfast this AM. She still has mayen catheter in place. PO intake tolerated: no (Has not attempted yet this AM) Flatus: yes Ambulation: no Vital Signs (12 hours) Temp Pulse Resp BP Pulse Ox 01/10/19 04:37 98.8 F 97 18 110/62 98 01/10/19 01:05 99.4 F 105 H 18 117/63 96 01/09/19 22:10 97.9 F 99 18 133/73 96 Weight Weight 72.575 kg - Physical Examination General: NAD Cardiovascular: no m/r/g, RRR Respiratory: clear to auscultation bilaterally, non-labored breathing Abdominal: + bowel sounds, lochia (minimal), no distention, appropriately TTP Fundus firm & at: below umbilicus Extremities: negative homans (B) Skin: no rash Deviation from normal: Pressure dressing still in place, clean and dry Neurological: no gross focal deficits Psychiatric: A&Ox3, normal affect Result Diagrams: 01/10/19 06:30 Additional Labs: Post Labs Blood Type O POSITIVE 01/09/19 03:00 Hep Bs Antigen Non-Reactive S/CO (NonReactive) 01/09/19 00:53 (1) S/P primary low transverse Code(s): Z98.891 - HISTORY OF UTERINE SCAR FROM PREVIOUS SURGERY Status: Acute (2) Term delivered Code(s): O80 - ENCOUNTER FOR FULL-TERM UNCOMPLICATED DELIVERY Status: Acute (3) Anemia affecting in third trimester Code(s): O99.013 - ANEMIA COMPLICATING , THIRD TRIMESTER Status: Acute (4) Glucose intolerance Code(s): E74.39 - OTHER DISORDERS OF INTESTINAL CARBOHYDRATE ABSORPTION Status : Acute - Assessment/Plan 33 yo G1 s/p pLTCS to an LGA infant. 1. sIUP, delivered via pLTCS -pph s/p hemabate and methergine, now with minimal bleeding -H/H 12.2/36.7 --> 9.5/29.1 -cEBL 1079 mL, class II hemorrhage -advance diet as tolerated -remove mayen catheter 2. Glucose intolerance -aware -recommend patient be evaluated for DM PP 3. Anemia of -PPH with cEBL 1079 mL and QBL appx 1300 mL -s/p methergine and hemabate -Bleeding now minimal -PO iron BID w/ stool softener Dispo: Will continue to monitor patient. Encourage early ambulation. Remove mayen catheter. Addendum - Attending - Attending Attestation Date/Time: 01/10/19 1007 I personally evaluated the patient and discussed the management with Dr. Hickey. I agree with the History, Examination, Assessment and Plan documented above with any addition or exceptions noted below.
[2019-01-11] MEDS: HYDROcodone/Acetaminophen 5/325 mg Tablet PO PRN ×2 (04:49→16:56)
[2019-01-11] MEDS: Simethicone Chewable 80 MG TAB PO PRN ×2 (05:50→15:05)
[2019-01-11] MEDS: Ibuprofen 800 MG TAB PO SCH ×3 (05:52→22:20)
[2019-01-11] MEDS: Ferrous Sulfate 325 MG TAB PO SCH ×2 (09:43→22:20)
[2019-01-11] MEDS: Docusate Calcium (SURFAK) 240 MG CAP PO SCH ×2 (09:43→22:20)
[2019-01-11] MEDS: Prenatal Vitamin 1 TAB PO SCH (09:43)
--- NOTE | 2019-01-11 10:07 | PDOC.PP ---
Post Progress Note Post Day #: 2 Subjective: Patient doing well. No significant overnight events. Patient tolerating PO, ambulating, passing flatus. Minimal lochia. PO intake tolerated: yes Flatus: yes Ambulation: yes Vital Signs (12 hours) Temp Pulse Resp BP Pulse Ox 01/11/19 07:50 98.5 F 88 20 96/52 L 01/11/19 04:34 98.7 F 110 H 20 114/59 L 01/10/19 23:15 98.8 F 109 H 20 122/71 97 Weight Weight 72.575 kg - Physical Examination General: NAD Cardiovascular: RRR Respiratory: clear to auscultation bilaterally, non-labored breathing Abdominal: + bowel sounds, lochia (minimal), no distention, appropriately TTP Fundus firm & at: below umbilicus Extremities: negative homans (B) Skin: CS incision dry & intact, no rash Neurological: no gross focal deficits Psychiatric: A&Ox3, normal affect Result Diagrams: 01/12/19 09:05 Additional Labs: Post Labs Blood Type O POSITIVE 01/09/19 03:00 Hep Bs Antigen Non-Reactive S/CO (NonReactive) 01/09/19 00:53 (1) S/P primary low transverse Code(s): Z98.891 - HISTORY OF UTERINE SCAR FROM PREVIOUS SURGERY Status: Acute (2) Term delivered Code(s): O80 - ENCOUNTER FOR FULL-TERM UNCOMPLICATED DELIVERY Status: Acute (3) Anemia affecting in third trimester Code(s): O99.013 - ANEMIA COMPLICATING , THIRD TRIMESTER Status: Acute (4) Glucose intolerance Code(s): E74.39 - OTHER DISORDERS OF INTESTINAL CARBOHYDRATE ABSORPTION Status : Acute - Assessment/Plan 33 yo G1 s/p pLTCS to an LGA . 1. sIUP, delivered via pLTCS -pot op day #2 -pph s/p hemabate and methergine, now with minimal bleeding -H/H 12.2/36.7 --> 9.5/29.1 -cEBL 1079 mL, class II hemorrhage -encourage ambulation -routine PP care 2. Glucose intolerance -aware -recommend patient be evaluated for DM PP 3. Anemia of -PPH with cEBL 1079 mL and QBL appx 1300 mL -s/p methergine and hemabate -Bleeding now minimal -PO iron BID w/ stool softener Dispo: Plan for d/c home tomorrow. Addendum - Attending - Attending Attestation Date/Time: 01/12/19 8317 I personally evaluated the patient and discussed the management with Dr. Hoskins on 01/11. I agree with the History, Examination, Assessment and Plan documented above with any addition or exceptions noted below.
[2019-01-11] MEDS: Bisacodyl 10 MG SUPP PR PRN (17:51)
[2019-01-12] MEDS: Ibuprofen 800 MG TAB PO SCH ×3 (05:53→21:53)
[2019-01-12] MEDS: Ferrous Sulfate 325 MG TAB PO SCH ×2 (08:05→21:53)
[2019-01-12] MEDS: Prenatal Vitamin 1 TAB PO SCH (08:05)
[2019-01-12] MEDS: Docusate Calcium (SURFAK) 240 MG CAP PO SCH ×2 (08:05→21:53)
[2019-01-12] MEDS: Bisacodyl 10 MG SUPP PR PRN (08:05)
[2019-01-12] MEDS: Simethicone Chewable 80 MG TAB PO PRN (08:06)
--- NOTE | 2019-01-12 08:08 | PDOC.OBPPN ---
FMR OB PN: Subj - Interval History Hospital Day: 4 Day: 3 s/p pLTCS for persistent category 2 FHT, failure to progress as a 33 y/o @ 40.4 WGA Patient doing well this AM. She reports some back pain where her epidural was. Reports some appropriate incisional pain and mild cramping abdominal pain. Reports minimal lochia. She is having pedal edema, but denies chest pain, SOB, H /A, vision changes, RUQ pain. She is pumping breast milk and plans to breast feed when her is d/c'd from nursery. She has been ambulating and tolerating PO. She reports passing flatus and a small BM yesterday after a dulcolax suppository, but she is still feeling constipated and bloated. FMR OB PN: Obj - Maternal Vital signs: BP: 135/79 HR: 83 RR: 18 Tmax: 98.7 Pox: 97% on RA Wt: 72.5 kg - Urine output I&O: 01/11/19 01/12/19 01/13/19 06:59 06:59 06:59 Intake Total 2500 960 Output Total 1120 Balance 1380 960 FMR OB PN: Exam - Physical Exam General: NAD, awake, alert and oriented HEENT: MMM, conjunctiva clear, no scleral icterus, grossly normal vision, grossly normal hearing Neck: supple, no LAD Heart: RRR, normal S1/S2, no murmurs/rubs/gallops, pulses present, other (1+ pitting edema to bilateral ankles) General: CTAB, no respiratory distress, good air movement, no rales/rhonchi, no wheezing Abdomen: soft, fundus(cm) (firm 2cm below umbilicus), other (mildly distended and appropriately tender to palpation) Musculoskeletal: pulses present, FROM in all four extremities Neurological: cranial nerves II through XII intact, no clonus, no focal deficit Skin: good tugor, capillary refill <2 seconds : incision healing well, no erythema, no edema, no drainage, appropriately tender Lymphatic: no unusual bruising or bleeding, no purpura Psychiatric: intact recent and remote memory, good judgement and insight FMR OB PN: A/P - Problem List (1) S/P primary low transverse Current Visit: Yes Status: Acute Code(s): Z98.891 - HISTORY OF UTERINE SCAR FROM PREVIOUS SURGERY (2) Anemia affecting in third trimester Current Visit: No Status: Acute Code(s): O99.013 - ANEMIA COMPLICATING , THIRD TRIMESTER (3) Glucose intolerance Current Visit: No Status: Acute Code(s): E74.39 - OTHER DISORDERS OF INTESTINAL CARBOHYDRATE ABSORPTION Disposition: 33 yo ->1 s/p pLTCS to an LGA infant. 1. sIUP, delivered via pLTCS. post op day #3 -pph s/p hemabate and methergine, now with minimal bleeding -H/H 12.2/36.7 --> 9.5/29.1 -cEBL 1079 mL, class II hemorrhage -encourage ambulation -Will give another dulcolax suppository and continue docusate for constipation -Cont PNV -Ibuprofen scheduled and norco prn pain -routine PP care 2. Glucose intolerance -aware -recommend patient be evaluated for DM PP 3. Anemia of -PPH with cEBL 1079 mL and QBL appx 1300 mL -s/p methergine and hemabate -Bleeding now minimal -PO iron BID w/ stool softener d/c home today Discussion: Date/Time: 01/12/19 0804 This H&P was discussed with Dr. Barrera who agrees with the above documentation and plan. Signature: Cyn Sepulveda MD, PGY-3 Addendum - Attending - Attending Attestation Date/Time: 01/12/19 1018 I personally evaluated the patient and discussed the management with Dr. Sepulveda I agree with the History, Examination, Assessment and Plan documented above with any addition or exceptions noted below. 33 yo female s/p PLTCS 2/2 persistent cat 2 tracing remote from delivery POD#3 HD#4 Patient doing well. Notes increase LE edema with discomfort and mild restriction of motion. Lochia mild. Denies BROWN, SOB, CP, palpitations, N/V, vision changes, epigastric pain. Reports pain with movement to incisional area. Increased tenderness to touch. VS, labs, imaging, record reviewed. RRR. No M. Breast engorged. CTAB. No W/C/R. Mild tenderness and some induration subQ to skin superior to incision. No erythema. Mild area of edema. No heat. Incision clean, dry, intact, no drainage, nontender. Fundus firm and nontender. +1 to +2 pitting edema to mild leg along with nonpitting edema to knee bilaterally 1. s/p PLTCS: Continue routine post-op care. 2. Tachycardia: Patient reports intermediate history but denies previous full workup. EKG ordered. Now with improved HR today. Asymptomatic. Orthostatics ordered. Rule out possible SHI with this. Check electrolytes including mag. Patient with increase risk for CV complications in pp period. Continue to monitor closely throughout the day. 3. BLE edema: Rule out HF. Trend BNP. EKG ordered. ECHO as indicated. Cards as indicated. Transfer to tele as indicated. Rule out atypical preE or CKD. Urine pro/cr pending. Re-evaluate throughout the day. Bilateral LE dopplers ordered to rule out DVT. Continue SCDs. Elevated extremities. 4. s/p PPH now with anemia: Continue iron. cBL = 1079 mL 5. Glucose intolerance: Risk for DM 6. BMI 36: Lifestyle modifications
[2019-01-12 09:14] LABS: #Eosinphils 0.1 thou/uL (0.0-0.7); #Lymphocytes 2.6 thou/uL (1.20-3.40); #Monocytes 0.7 thou/uL (0.11-0.59); #Neutrophils 10.1 thou/uL (1.40-6.50); %Basophils 0.1 % (0.0-1.0); %Eosinophils 0.6 % (0.0-10.0); %Lymphocytes 19.1 % (21.0-51.0); %Monocytes 5.2 % (0.0-10.0); %Neutrophils 74.9 % (42.0-75.0); Hemoglobin 9.1 g/dL (12.0-16.0); Mean Corpuscular HGB CONC 32.4 g/dL (32.0-36.0); Mean Corpuscular Hemoglobin 29.9 pg (27.0-31.0); Mean Corpuscular Volume 92.2 fL (78.0-98.0); Mean Platelet Volume 7.7 fL (7.4-10.4); Platelet Count 220 thou/uL (130-400); RBC Distribution Width 13.2 % (11.5-14.5); Red Blood Cell (RBC) Count 3.06 mill/uL (4.20-5.40); White Blood Cell (WBC) Count 13.5 thou/uL (4.8-10.8)
[2019-01-12 09:42] LABS: ALT (SGPT) 14 U/L (8-55); AST (SGOT) 19 U/L (5-34); Albumin 2.8 g/dL (3.5-5.0); Alkaline Phosphatase 155 U/L (40-150); Anion Gap 10 mmol/L (10-20); BUN (Urea Nitrogen) 11 mg/dL (7.0-18.7); Bilirubin, Total 0.3 mg/dL (0.2-1.2); Calc. Creatinine Clearance 161 mL/min (70-130); Calcium 8.7 mg/dL (7.8-10.44); Carbon Dioxide 26 mmol/L (22-29); Chloride 106 mmol/L (98-107); Estimated GFR-MDRD Greater than 90; Globulin 2.9 g/dL (2.4-3.5); Glucose 88 mg/dL (70-105); Magnesium 1.9 mg/dL (1.6-2.6); Potassium 4.1 mmol/L (3.5-5.1); Protein, Total 5.7 g/dL (6.0-8.3); Sodium 138 mmol/L (136-145)
--- NOTE | 2019-01-12 13:48 | ULT ---
BILATERAL LOWER EXTREMITY VENOUS DOPPLER ULTRASOUND: HISTORY: Pain and edema of the lower extremities. TECHNIQUE: Leach scale ultrasound with color flow and spectral Doppler imaging of the deep venous systems of the lower extremities performed bilaterally. FINDINGS: There is good flow, compression, and augmentation noted in the common femoral, femoral, deep femoral, popliteal, posterior tibial, and greater saphenous veins. IMPRESSION: No evidence of deep vein thrombosis in either lower extremity. POS: TPC
[2019-01-12 14:29] LABS: Creatinine, Urine 58.41 mg/dL (47-110)
[2019-01-12] MEDS: Acetaminophen 325 MG TAB PO PRN (15:28)
[2019-01-12] MEDS ORDERED: Furosemide 20 MG TAB PO SCH (15:30)
[2019-01-12] MEDS ORDERED: Gentamicin Sulfate 360 MG in Sodium Chloride 0.9% 100 ML IVPB SCH (18:00)
--- NOTE | 2019-01-12 18:03 | RAD ---
CHEST TWO VIEWS: 01/12/2019 PROVIDED CLINICAL HISTORY: Fever. FINDINGS: The cardiac silhouette appears enlarged. No focal consolidation evident. No evidence for pneumothor ax. Small bilateral pleural effusions are seen. IMPRESSION: Small bilateral pleural effusions. POS: TERRI
--- NOTE | 2019-01-12 19:06 | PDOC.EVN ---
Event Note - Event Note Event Note: Went to re-evaluate patient and swelling has worsened since this AM. She also was noted to have small bilateral pleural effusions on CXR. Patient denies any SOB, H/A, vision changes, new fevers, abdominal pain. She does note that the swelling in her feet is mildly tender. She has 1+ pitting edema to the knees bilaterally. 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 Currently BP's WNL. Will keep pre- eclampsia on differential. Ordered a repeat BNP, echo, and another dose of lasix. She received 40mg po at 1530 and so gave 20mg IVP. Ordered strict I/O's and daily weights.
[2019-01-12] MEDS ORDERED: Furosemide 20 MG/2 ML VIAL SLOW IVP SCH (19:15)
[2019-01-12] MEDS ORDERED: Sodium Chloride 0.9% 10 ML ONE (19:37)
[2019-01-12] MEDS ORDERED: Clindamycin/D5W 900 MG in Premix Bag 1 BAG IVPB SCH (20:00)
[2019-01-12] MEDS: Enoxaparin Sodium 40 MG/0.4 ML SYRINGE SC SCH (21:52)
[2019-01-13] MEDS: Clindamycin/D5W 900 MG in Premix Bag 1 BAG IVPB SCH ×4 (00:03→21:30)
[2019-01-13 01:00] LABS: Bacteria/HPF None Seen HPF (None Seen); Bilirubin Negative (Negative); Blood, Urine Negative (Negative); Clarity Clear (Clear); Glucose, Urine (Dipstick) Normal (Negative); Leukocyte 75 Leu/uL (Negative); Mucous/LPF Rare LPF (<2+); Nitrite Negative (Negative); Protein, Urine (Dipstick) 10 mg/dL (Neg-Trace); RBC/HPF 0-3 HPF (0-3); Squamous Epithelial 0-3 HPF (0-3); Urobilinogen Normal mg/dL (Less than 2); WBC/HPF 0-3 HPF (0-3)
[2019-01-13] MEDS: Acetaminophen 325 MG TAB PO PRN ×2 (02:32→05:32)
[2019-01-13] MEDS ORDERED: Furosemide 40 MG/4 ML VIAL SLOW IVP SCH ×3 (03:00→14:00)
[2019-01-13] MEDS ORDERED: Sodium Chloride 0.9% 10 ML ONE (03:06)
[2019-01-13 03:42] LABS: #Lymphocytes 1.5 thou/uL (1.20-3.40); #Neutrophils 12.2 thou/uL (1.40-6.50); %Basophils 0.2 % (0.0-1.0); %Eosinophils 0.3 % (0.0-10.0); %Lymphocytes 10.1 % (21.0-51.0); %Monocytes 6.5 % (0.0-10.0); %Neutrophils 82.9 % (42.0-75.0); Hemoglobin 9.9 g/dL (12.0-16.0); Mean Corpuscular Hemoglobin 30.5 pg (27.0-31.0); Mean Corpuscular Volume 92.5 fL (78.0-98.0); Mean Platelet Volume 7.7 fL (7.4-10.4); Platelet Count 278 thou/uL (130-400); Red Blood Cell (RBC) Count 3.23 mill/uL (4.20-5.40); White Blood Cell (WBC) Count 14.7 thou/uL (4.8-10.8)
[2019-01-13 04:02] LABS: ALT (SGPT) 21 U/L (8-55); AST (SGOT) 28 U/L (5-34); Albumin 3.2 g/dL (3.5-5.0); Alkaline Phosphatase 175 U/L (40-150); Anion Gap 17 mmol/L (10-20); BUN (Urea Nitrogen) 13 mg/dL (7.0-18.7); Bilirubin, Total 0.5 mg/dL (0.2-1.2); Calc. Creatinine Clearance 137 mL/min (70-130); Calcium 9.1 mg/dL (7.8-10.44); Carbon Dioxide 25 mmol/L (22-29); Chloride 104 mmol/L (98-107); Estimated GFR-MDRD Greater than 90; Globulin 3.3 g/dL (2.4-3.5); Glucose 97 mg/dL (70-105); Potassium 3.4 mmol/L (3.5-5.1); Protein, Total 6.5 g/dL (6.0-8.3); Sodium 143 mmol/L (136-145)
[2019-01-13] MEDS: Ibuprofen 800 MG TAB PO SCH (05:07)
--- NOTE | 2019-01-13 05:10 | PDOC.EVN ---
Event Note - Event Note Event Note: Residents paged at 0330 on 01/13/19 to evaluate patient due to increased work of breathing and pulse ox of 87% of RA. Myself and Dr. Raines immediately went to room to evaluate patient. She was tachypneic in the 30-40s and O2 sats were in the mid-90s on 5L O2. Lung exam was significant for rales bilaterally, worse on the right. She also had a temperature of 101.1. We repeated blood cultures and ordered stat CXR and BNP. Also ordered Lasix 40 mg IVP. CXR was done and pt appeared to have worsened pulmonary edema. STAT Echo was ordered earlier in the night due to concern for cardiomyopathy but had not been done yet. Nursing staff contacted hothouse worker who made arrangements for Echo to be done stat. Echo was done and Dr. Enirque was consulted. We continued to monitor patient and decision was made to transfer to [facility] for worsened respiratory status and closer monitoring. Patient transferred to [facility]. Will continue to monitor patient closely. Strict I/ O orders are in. Will notify Dr. Greenfield of patient being transferred to [facility] this morning. Addendum - Attending - Attending Attestation Date/Time: 01/13/19 2613 I personally evaluated the patient and discussed the management with Dr. Navas. I agree with the History, Examination, Assessment and Plan documented above with any addition or exceptions noted below. Since her transfer and lasix, she reports brathing much easier and feeling better. Her lung exam at 6:45 this morning no longer reveals rales. Good airflow but diminished at bases. Whiel she is on oxygen, she is not in respiratory distress.
[2019-01-13] MEDS ORDERED: Spironolactone 25 MG TAB PO SCH (05:15)
[2019-01-13] MEDS ORDERED: Potassium Chloride 20 MEQ TAB PO SCH (05:15)
--- NOTE | 2019-01-13 07:39 | PDOC.OBPPN ---
FMR OB PN: Subj - Interval History Day: 4 s/p pLTCS for persistent category 2 FHT, failure to progress as a 33 y/o @ 40.4 WGA Yesterday the patient developed a fever and this returned overnight as well. She was found to have pedal edema yesterday morning, but throughout the day this worsened. I re-evaluated her in the afternoon and the pitting edema was up to her knees bilaterally. She received two doses of lasix yesterday. Overnight she became acutely SOB and was transferred to the [facility]. She was requiring O2 by SC and was given another dose of lasix. She has another fever overnight. Reports some appropriate incisional pain and mild cramping abdominal pain that is well controlled with ibuprofen. Reports minimal lochia. She reports her LE edema has improved. denies chest pain, SOB, H/A, vision changes, RUQ pain. She is currently on O2 by facemask. She is pumping breast milk and plans to breast feed when her is d/c'd from nursery. She has been ambulating and tolerating PO. She reports passing flatus. FMR OB PN: Obj - Maternal Vital signs: BP: 136/68 HR: 68 RR: 31 Tmax: 101.7 - Urine output I&O: 01/12/19 01/13/19 01/14/19 06:59 06:59 06:59 Intake Total 960 300 Output Total 1450 Balance 960 -1150 FMR OB PN: Exam - Physical Exam General: NAD (resting comfortably with o2 by facemask), awake, alert and oriented HEENT: EOMI, MMM, conjunctiva clear, grossly normal vision, grossly normal hearing Neck: supple, no LAD Deviation from normal: RRR, 3/6 systolic murmur, 1+ pitting edema to mid tibia bilaterally Deviation from normal: no respiratory distress, crackles bilaterally, worse on R , no wheezes Abdomen: soft, fundus(cm) (firm 2cm below umbilicus), non-tender Musculoskeletal: pulses present, FROM in all four extremities Neurological: cranial nerves II through XII intact, no clonus, no focal deficit Skin: good tugor, capillary refill <2 seconds : incision healing well, no erythema, no edema, no drainage, appropriately tender Lymphatic: no unusual bruising or bleeding, no purpura Psychiatric: intact recent and remote memory, good judgement and insight FMR OB PN: Data - Labs Lab results: Laboratory Results - last 24 hr 01/12/19 01/12/19 01/12/19 00:25 09:05 09:05 WBC 13.5 H RBC 3.06 L Hgb 9.1 L Hct 28.2 L MCV 92.2 MCH 29.9 MCHC 32.4 RDW 13.2 Plt Count 220 MPV 7.7 Neutrophils % 74.9 Lymphocytes % 19.1 L Monocytes % 5.2 Eosinophils % 0.6 Basophils % 0.1 Neutrophils # 10.1 H Lymphocytes # 2.6 Monocytes # 0.7 H Eosinophils # 0.1 Basophils # 0.0 Sodium 138 Potassium 4.1 Chloride 106 Carbon Dioxide 26 Anion Gap 10 BUN 11 Creatinine 0.58 L Estimated GFR (MDRD) Greater than 90 Glucose 88 Calcium 8.7 Magnesium 1.9 Total Bilirubin 0.3 AST 19 ALT 14 Alkaline Phosphatase 155 H B-Natriuretic Peptide Serum Total Protein 5.7 L Albumin 2.8 L Globulin 2.9 Albumin/Globulin Ratio 1.0 L Urine Color Colorless Urine Clarity Clear Urine pH 6.0 Ur Specific [place] 1.012 Urine Protein 10 Urine Glucose (UA) Normal Urine Ketones Negative Urine Blood Negative Urine Nitrite Negative Urine Bilirubin Negative Urine Urobilinogen Normal Ur Leukocyte Esterase 75 A Urine RBC 0-3 Urine WBC 0-3 Ur Squamous Epith Cells 0-3 Urine Bacteria None Seen Urine Mucus Rare U Random Total Protein Urine Creatinine 01/12/19 01/12/19 01/13/19 12:00 18:46 03:31 WBC 14.7 H RBC 3.23 L Hgb 9.9 L Hct 29.8 L MCV 92.5 MCH 30.5 MCHC 33.0 RDW 13.0 Plt Count 278 MPV 7.7 Neutrophils % 82.9 H Lymphocytes % 10.1 L Monocytes % 6.5 Eosinophils % 0.3 Basophils % 0.2 Neutrophils # 12.2 H Lymphocytes # 1.5 Monocytes # 1.0 H Eosinophils # 0.0 Basophils # 0.0 Sodium Potassium Chloride Carbon Dioxide Anion Gap BUN Creatinine Estimated GFR (MDRD) Glucose Calcium Magnesium Total Bilirubin AST ALT Alkaline Phosphatase B-Natriuretic Peptide 99.0 Serum Total Protein Albumin Globulin Albumin/Globulin Ratio Urine Color Urine Clarity Urine pH Ur Specific [place] Urine Protein Urine Glucose (UA) Urine Ketones Urine Blood Urine Nitrite Urine Bilirubin Urine Urobilinogen Ur Leukocyte Esterase Urine RBC Urine WBC Ur Squamous Epith Cells Urine Bacteria Urine Mucus U Random Total Protein 16 H Urine Creatinine 58.41 01/13/19 01/13/19 01/13/19 03:31 03:31 03:31 WBC RBC Hgb Hct MCV MCH MCHC RDW Plt Count MPV Neutrophils % Lymphocytes % Monocytes % Eosinophils % Basophils % Neutrophils # Lymphocytes # Monocytes # Eosinophils # Basophils # Sodium 143 Potassium 3.4 L Chloride 104 Carbon Dioxide 25 Anion Gap 17 BUN 13 Creatinine 0.68 Estimated GFR (MDRD) Greater than 90 Glucose 97 Calcium 9.1 Magnesium 1.6 Total Bilirubin 0.5 AST 28 ALT 21 Alkaline Phosphatase 175 H B-Natriuretic Peptide 259.3 H Serum Total Protein 6.5 Albumin 3.2 L Globulin 3.3 Albumin/Globulin Ratio 1.0 L Urine Color Urine Clarity Urine pH Ur Specific [place] Urine Protein Urine Glucose (UA) Urine Ketones Urine Blood Urine Nitrite Urine Bilirubin Urine Urobilinogen Ur Leukocyte Esterase Urine RBC Urine WBC Ur Squamous Epith Cells Urine Bacteria Urine Mucus U Random Total Protein Urine Creatinine FMR OB PN: A/P - Problem List (1) fever Current Visit: Yes Status: Acute Code(s): O86.4 - PYREXIA OF UNKNOWN ORIGIN FOLLOWING DELIVERY (2) Peripartum cardiomyopathy, Current Visit: Yes Status: Acute Code(s): O90.3 - PERIPARTUM CARDIOMYOPATHY (3) S/P primary low transverse Current Visit: Yes Status: Acute Code(s): Z98.891 - HISTORY OF UTERINE SCAR FROM PREVIOUS SURGERY (4) Anemia affecting in third trimester Current Visit: No Status: Acute Code(s): O99.013 - ANEMIA COMPLICATING , THIRD TRIMESTER (5) Glucose intolerance Current Visit: No Status: Acute Code(s): E74.39 - OTHER DISORDERS OF INTESTINAL CARBOHYDRATE ABSORPTION Disposition: 33 yo ->1 s/p pLTCS to an LGA infant. 1. sIUP, delivered via pLTCS. post op day #4 -pph s/p hemabate and methergine, now with minimal bleeding -H/H 12.2/36.7 --> 9.5/29.1 -cEBL 1079 mL, class II hemorrhage -encourage ambulation -Cont PNV -Ibuprofen scheduled and norco prn pain -routine PP care 2. Peripartum cardiomyopathy Clinically pt has developed cardiomyopathy with pulmonary edema, LE edema. BNP elevated to 259. Trop WNL. EKG WNL. Echo showed trace MR and TR, but EF 60-65%. Clinically responded to lasix, but remains on 15L O2 by facemask -Lasix 40IVP BID -Lisinopril 2.5mg -Atorvastatin 40mg -Discussed case with Dr. Enrique of cardiology, will be followed by Dr. Espana. -s/p one dose of spironolactone -Repeat EKG -Trend trops -TSH 3. Post-op fever Pt day 4, post-op day 4. No symptoms pointing to particular etiology. CXR showed pulmonary edema, UA trace LE, Blood cx no growth at 24 hours, pt non-tender in abdomen. Could be mastitis as pt breasts are very engorged. -Will continue clinda and gent -BCX -Check procalcitonin 4. Glucose intolerance -aware -recommend patient be evaluated for DM PP 5. Anemia of -PPH with cEBL 1079 mL and QBL appx 1300 mL -s/p methergine and hemabate -Bleeding now minimal -PO iron BID w/ stool softener Dispo: Continue to monitor in IMCU Discussion: Date/Time: 01/13/19 9521 This H&P was discussed with Dr. Barrera who agrees with the above documentation and plan. Signature: Cyn Sepulveda MD, PGY-3
--- NOTE | 2019-01-13 07:53 | RAD ---
EXAM: XR Chest 1 View Portable PROVIDED CLINICAL HISTORY: Postoperative fever. COMPARISON: 01/12/2019 FINDINGS: There are increased interstitial opacities within the perihilar regions bilaterally with increased al veolar opacity within the right midlung zone and right lung base. Findings may be related to either asymmetric pulmonary edema or infectious process. The cardiac silhouette is magnified by projection b ut stable in size. Pulmonary vasculature is at the upper limits of normal. No pleural effusion is seen. No other interval change. IMPRESSION: Interstitial and alveolar opacities bilaterally greater on the right. Findings may be related to asym metric pulmonary edema versus infectious process. Follow-up to resolution is recommended.
[2019-01-13] MEDS ORDERED: Magnesium 2 GM/50 ML 2 GM in Premix Bag 1 BAG IVPB SCH (08:30)
[2019-01-13 09:07] VITALS: BMI 36.6
[2019-01-13] MEDS: Aspirin 81 mg Enteric Coated Tablet PO SCH (09:34)
[2019-01-13] MEDS: Prenatal Vitamin 1 TAB PO SCH (09:34)
[2019-01-13] MEDS: Atorvastatin Calcium 40 MG TAB PO SCH (09:34)
[2019-01-13] MEDS: Ferrous Sulfate 325 MG TAB PO SCH ×2 (09:34→21:25)
[2019-01-13] MEDS: Lisinopril 2.5 MG TAB PO SCH (09:35)
[2019-01-13] MEDS: Docusate Calcium (SURFAK) 240 MG CAP PO SCH ×2 (09:35→21:25)
[2019-01-13 09:41] LABS: Cardiac Risk 4.3 (Less than 4.5)
--- NOTE | 2019-01-13 10:29 | CON ---
DATE OF CONSULTATION: HISTORY OF PRESENT ILLNESS: The patient is a 33-year-old woman with no known cardiac history, who developed acute dyspnea. The patient recently underwent an uncomplicated 4 days ago. The patient developed postoperative fever. She suddenly became dyspneic. She became markedly dyspneic, was transferred for further evaluation. The patient was treated with IV Lasix. She states she is breathing much better. PAST MEDICAL HISTORY: None. PAST SURGICAL HISTORY: Had . SOCIAL HISTORY: Nonsmoker. FAMILY HISTORY: Positive family history of heart disease. MEDICATIONS: On admission, 1. Ibuprofen 800 mg . 2. Iron sulfate 325 b.i.d. 3. Surfak 240 b.i.d. PHYSICAL EXAMINATION: GENERAL: This is an ill-appearing woman, in mild distress. VITAL SIGNS: Blood pressure 117/69. NECK: Showed jugular venous distention. LUNGS: Crackles in both lung tran. HEART: Regular rate and rhythm. Normal S1 and S2. No murmurs. ABDOMEN: Nondistended. EXTREMITIES: Showed mild bilateral edema. VASCULAR: Radial pulses 2+. LABORATORY DATA: Sodium 143, potassium 3.4, chloride 104, bicarbonate 25, BUN 13, creatinine 0.68. Troponin was 0.01. BNP is 259. White blood cell count was 14.7, hemoglobin 9.9, hematocrit 29.8, and platelets 278. IMAGING STUDIES: Her EKG revealed normal sinus rhythm, normal ECG. Chest x-ray showed bilateral pulmonary edema. Her echocardiogram revealed normal left ventricular ejection fraction of 60% to 65% with no significant valvular regurgitation. IMPRESSION: Acute pulmonary edema, probably secondary to acute respiratory distress syndrome and possibly diastolic dysfunction. PLAN: This patient developed acute pulmonary edema. Her EKG is completely normal. Echocardiogram revealed normal left systolic function. The patient's BNP level was elevated. She did have very elevated temperature and a temperature suggestive of possible acute development of ARDS. The patient was diuresed. She is diuresed well with IV Lasix. We will follow this patient with you through her hospitalization. Job ID: [id number]
--- NOTE | 2019-01-13 11:34 | RAD ---
EXAM: Single view of the chest HISTORY: Pneumonia COMPARISON: 01/13/2019 FINDINGS: Single view of the chest shows a normal sized cardiomediastinal silhouette. There is stable airspace opacity projecting over the right lower lobe. The bones are unremarkable. IMPRESSION: Right lower lobe pneumonia
[2019-01-13] MEDS ORDERED: Furosemide 20 MG/2 ML VIAL SLOW IVP SCH (14:00)
[2019-01-13] MEDS: Ibuprofen 600 MG TAB PO SCH ×2 (14:36→21:26)
[2019-01-13 15:31] LABS: Anion Gap 13 mmol/L (10-20); BUN (Urea Nitrogen) 15 mg/dL (7.0-18.7); Calc. Creatinine Clearance 163 mL/min (70-130); Calcium 8.8 mg/dL (7.8-10.44); Carbon Dioxide 29 mmol/L (22-29); Chloride 102 mmol/L (98-107); Estimated GFR-MDRD Greater than 90; Glucose 98 mg/dL (70-105); Magnesium 2.3 mg/dL (1.6-2.6); Potassium 3.6 mmol/L (3.5-5.1); Sodium 140 mmol/L (136-145)
--- NOTE | 2019-01-13 15:55 | CON ---
DATE OF CONSULTATION: 01/13/2019 CONSULTING PHYSICIAN: [facility]. REASON FOR CONSULTATION: Pulmonary infiltrates and fever. HISTORY OF PRESENT ILLNESS: The patient is a 33-year-old female, who delivered back on 01/09/2019. She became acutely short of breath yesterday. She was felt to be in pulmonary edema. She has received some Lasix and is now better. She also had a concurrent fever 101.7 beside, which is not known. She has no cough or congestion. She says her breathing is better today. PAST MEDICAL HISTORY: Gastroesophageal reflux. PAST SURGICAL HISTORY: Negative. SOCIAL HISTORY: Nonsmoker. Does not consume alcohol. FAMILY MEDICAL HISTORY: Remarkable for diabetes and hypertension. MEDICATIONS: Prior to admission; 1. vitamin. 2. Motrin. 3. Napoleon. 4. Iron sulfate. 5. Surfak. Current inpatient medications; 1. Lipitor. 2. . 3. Surfak. 4. . 5. Ibuprofen. 6. Lisinopril. 7. Naloxone. 8. vitamin. 9. Furosemide. 10. . PHYSICAL EXAMINATION: VITAL SIGNS: Temperature 97.8, pulse 81, blood pressure 117/69, and O2 saturation now 100% on 2 L. GENERAL: She is awake, alert, no distress. HEENT: Unremarkable. NECK: No adenopathy or JVD. LUNGS: She has a few crackles in the right base. Left side is clear. CARDIAC: S1 and S2. Regular. ABDOMEN: Soft, slightly obese. EXTREMITIES: Edematous lower extremities. DIAGNOSTIC DATA: Echo apparently was unrevealing. Her chest x-ray demonstrates bilateral infiltrates - the film was from approximately 3 a.m. this morning and at this point, has not been repeated. ASSESSMENT: Transient hypoxemia, which is most likely secondary to pulmonary edema. I would not think pneumonia would get better this fast. The fever is somewhat confounding. RECOMMENDATION: 1. She is stable to move back to the obstetric wells. 2. She is having Rocephin added to cover for potential pneumonia. 3. Agree with diuretics. 4. I will go ahead and have her x-ray repeated to see if it is better. Job ID: [id number]
[2019-01-13] MEDS: Potassium Chloride 20 MEQ TAB PO SCH (17:36)
[2019-01-13] MEDS ORDERED: Gentamicin Sulfate 360 MG in Sodium Chloride 0.9% 100 ML IVPB SCH (21:00)
[2019-01-13] MEDS: Enoxaparin Sodium 40 MG/0.4 ML SYRINGE SC SCH (21:25)
[2019-01-13] MEDS: Magnesium Chloride 64 MG TAB PO SCH (21:27)
--- NOTE | 2019-01-13 22:56 | EKG ---
Test Reason : Blood Pressure : / mmHG Vent. Rate : 078 BPM Atrial Rate : 078 BPM P-R Int : 144 ms QRS Dur : 066 ms QT Int : 356 ms P-R-T Axes : 036 065 043 degrees QTc Int : 405 ms Normal sinus rhythm Normal ECG Confirmed by Gabriela WANG ([id number]) on 01/13/2019 10:56:39 PM Referred By: TSERING *R Confirmed By:Gabriela WANG
--- NOTE | 2019-01-13 22:59 | EKG ---
Test Reason : Blood Pressure : / mmHG Vent. Rate : 062 BPM Atrial Rate : 062 BPM P-R Int : 120 ms QRS Dur : 070 ms QT Int : 416 ms P-R-T Axes : -15 069 049 degrees QTc Int : 422 ms Normal sinus rhythm with sinus arrhythmia Normal ECG When compared with ECG of 12-JAN-2019 10:53, (Unconfirmed) No significant change was found Confirmed by Gabriela WANG ([id number]) on 01/13/2019 10:59:07 PM Referred By: HUNG Benitez Confirmed By:Gabriela WANG
[2019-01-14 04:54] LABS: #Lymphocytes 2.4 thou/uL (1.20-3.40); #Monocytes 1.5 thou/uL (0.11-0.59); #Neutrophils 9.1 thou/uL (1.40-6.50); %Basophils 0.2 % (0.0-1.0); %Eosinophils 0.2 % (0.0-10.0); %Lymphocytes 18.1 % (21.0-51.0); %Monocytes 11.6 % (0.0-10.0); %Neutrophils 69.8 % (42.0-75.0); Hemoglobin 8.7 g/dL (12.0-16.0); Mean Corpuscular Hemoglobin 30.6 pg (27.0-31.0); Mean Corpuscular Volume 92.7 fL (78.0-98.0); Mean Platelet Volume 7.4 fL (7.4-10.4); Platelet Count 266 thou/uL (130-400); RBC Distribution Width 12.9 % (11.5-14.5); Red Blood Cell (RBC) Count 2.85 mill/uL (4.20-5.40); White Blood Cell (WBC) Count 13.1 thou/uL (4.8-10.8)
[2019-01-14 05:19] LABS: ALT (SGPT) 21 U/L (8-55); AST (SGOT) 19 U/L (5-34); Albumin 2.7 g/dL (3.5-5.0); Alkaline Phosphatase 132 U/L (40-150); Anion Gap 11 mmol/L (10-20); BUN (Urea Nitrogen) 15 mg/dL (7.0-18.7); Bilirubin, Total 0.3 mg/dL (0.2-1.2); Calc. Creatinine Clearance 163 mL/min (70-130); Calcium 8.5 mg/dL (7.8-10.44); Carbon Dioxide 28 mmol/L (22-29); Chloride 104 mmol/L (98-107); Estimated GFR-MDRD Greater than 90; Globulin 2.9 g/dL (2.4-3.5); Glucose 87 mg/dL (70-105); Magnesium 2.2 mg/dL (1.6-2.6); Phosphorus 4.1 mg/dL (2.3-4.7); Potassium 3.8 mmol/L (3.5-5.1); Protein, Total 5.6 g/dL (6.0-8.3); Sodium 139 mmol/L (136-145)
[2019-01-14] MEDS: Ibuprofen 600 MG TAB PO SCH (06:04)
[2019-01-14] MEDS: Clindamycin/D5W 900 MG in Premix Bag 1 BAG IVPB SCH ×2 (06:04→13:36)
--- NOTE | 2019-01-14 07:54 | PDOC.OBPPN ---
FMR OB PN: Subj - Interval History Day: #5 s/p pLTCS for persistent category 2 FHT, failure to progress as a 33 y/o @ 40.4 WGA Reports some appropriate incisional pain and mild cramping abdominal pain that is well controlled. Reports minimal lochia. She reports her LE edema has improved significantly. Denies chest pain, SOB, H/A, vision changes, RUQ pain. She is currently off all oxygen. She is pumping breast milk and plans to breast feed when her is d/c'd from nursery, but reports that her breasts have been very engorged. She has been tolerating PO. She reports passing flatus. She denies any fevers overnight. FMR OB PN: Obj - Maternal Vital signs: BP: 118/73 HR: 79 RR: 31 Tmax: 98.7 Pox: 100% on RA Wt: 82kg - Urine output I&O: 01/13/19 01/14/19 01/15/19 06:59 06:59 06:59 Intake Total 570 1300 Output Total 2150 2625 Balance -1580 -1325 FMR OB PN: Exam - Physical Exam General: NAD, awake, alert and oriented HEENT: EOMI, MMM, conjunctiva clear, no scleral icterus, grossly normal vision, grossly normal hearing Neck: supple, no LAD Deviation from normal: tender, engorged, no erythema or warmth Heart: RRR, normal S1/S2, pulses present, other (trace pitting edema in bilateral feet and ankles) Deviation from normal: tachypneic, crackles bilaterally in the bases, no wheezes Abdomen: soft, fundus(cm) (firm 3cm below umbilicus), non-tender Musculoskeletal: pulses present, FROM in all four extremities Neurological: cranial nerves II through XII intact, no clonus, no focal deficit Skin: good tugor, capillary refill <2 seconds : incision healing well, no erythema, no edema, no drainage, appropriately tender Lymphatic: no unusual bruising or bleeding, no purpura Psychiatric: intact recent and remote memory, good judgement and insight FMR OB PN: Data - Labs Lab results: Laboratory Results - last 24 hr 01/13/19 01/13/19 01/13/19 03:31 03:31 08:57 WBC RBC Hgb Hct MCV MCH MCHC RDW Plt Count MPV Neutrophils % Lymphocytes % Monocytes % Eosinophils % Basophils % Neutrophils # Lymphocytes # Monocytes # Eosinophils # Basophils # Sodium Potassium Chloride Carbon Dioxide Anion Gap BUN Creatinine Estimated GFR (MDRD) Glucose Calcium Phosphorus Magnesium Total Bilirubin AST ALT Alkaline Phosphatase Troponin I Less than 0.010 Serum Total Protein Albumin Globulin Albumin/Globulin Ratio Triglycerides 144 Cholesterol 159 LDL Cholesterol, Calc 93 HDL Cholesterol 37 Heart Disease Risk Ratio 4.3 Procalcitonin 0.13 TSH 3rd Generation 01/13/19 01/13/19 01/13/19 08:57 08:57 12:11 WBC RBC Hgb Hct MCV MCH MCHC RDW Plt Count MPV Neutrophils % Lymphocytes % Monocytes % Eosinophils % Basophils % Neutrophils # Lymphocytes # Monocytes # Eosinophils # Basophils # Sodium Potassium Chloride Carbon Dioxide Anion Gap BUN Creatinine Estimated GFR (MDRD) Glucose Calcium Phosphorus Magnesium Total Bilirubin AST ALT Alkaline Phosphatase Troponin I 0.018 0.011 Serum Total Protein Albumin Globulin Albumin/Globulin Ratio Triglycerides Cholesterol LDL Cholesterol, Calc HDL Cholesterol Heart Disease Risk Ratio Procalcitonin TSH 3rd Generation 0.7636 01/13/19 01/13/19 01/14/19 14:48 14:48 04:28 WBC RBC Hgb Hct MCV MCH MCHC RDW Plt Count MPV Neutrophils % Lymphocytes % Monocytes % Eosinophils % Basophils % Neutrophils # Lymphocytes # Monocytes # Eosinophils # Basophils # Sodium 140 139 Potassium 3.6 3.8 Chloride 102 104 Carbon Dioxide 29 28 Anion Gap 13 11 BUN 15 15 Creatinine 0.65 0.65 Estimated GFR (MDRD) Greater than 90 Greater than 90 Glucose 98 87 Calcium 8.8 8.5 Phosphorus 4.1 Magnesium 2.3 2.2 Total Bilirubin 0.3 AST 19 ALT 21 Alkaline Phosphatase 132 Troponin I Less than 0.010 Serum Total Protein 5.6 L Albumin 2.7 L Globulin 2.9 Albumin/Globulin Ratio 0.9 L Triglycerides Cholesterol LDL Cholesterol, Calc HDL Cholesterol Heart Disease Risk Ratio Procalcitonin TSH 3rd Generation 01/14/19 04:28 WBC 13.1 H RBC 2.85 L Hgb 8.7 L Hct 26.4 L MCV 92.7 MCH 30.6 MCHC 33.0 RDW 12.9 Plt Count 266 MPV 7.4 Neutrophils % 69.8 Lymphocytes % 18.1 L Monocytes % 11.6 H Eosinophils % 0.2 Basophils % 0.2 Neutrophils # 9.1 H Lymphocytes # 2.4 Monocytes # 1.5 H Eosinophils # 0.0 Basophils # 0.0 Sodium Potassium Chloride Carbon Dioxide Anion Gap BUN Creatinine Estimated GFR (MDRD) Glucose Calcium Phosphorus Magnesium Total Bilirubin AST ALT Alkaline Phosphatase Troponin I Serum Total Protein Albumin Globulin Albumin/Globulin Ratio Triglycerides Cholesterol LDL Cholesterol, Calc HDL Cholesterol Heart Disease Risk Ratio Procalcitonin TSH 3rd Generation FMR OB PN: A/P - Problem List (1) Peripartum cardiomyopathy, Current Visit: Yes Status: Acute Code(s): O90.3 - PERIPARTUM CARDIOMYOPATHY (2) fever Current Visit: Yes Status: Acute Code(s): O86.4 - PYREXIA OF UNKNOWN ORIGIN FOLLOWING DELIVERY (3) S/P primary low transverse Current Visit: Yes Status: Acute Code(s): Z98.891 - HISTORY OF UTERINE SCAR FROM PREVIOUS SURGERY (4) Anemia affecting in third trimester Current Visit: No Status: Acute Code(s): O99.013 - ANEMIA COMPLICATING , THIRD TRIMESTER (5) Glucose intolerance Current Visit: No Status: Acute Code(s): E74.39 - OTHER DISORDERS OF INTESTINAL CARBOHYDRATE ABSORPTION (6) Gestational hypertension Current Visit: Yes Status: Acute Code(s): O13.9 - GESTATIONAL HTN W/O SIGNIFICANT PROTEINURIA, UNSP TRIMESTER Disposition: 33 yo ->1 s/p pLTCS to an LGA . 1. sIUP, delivered via pLTCS. post op day #5 -pph s/p hemabate and methergine, now with minimal bleeding -H/H 12.2/36.7 --> 9.5/29.1->8.7/26.4 -cEBL 1079 mL, class II hemorrhage -encourage ambulation -Cont PNV -norco prn pain. Will stop all NSAIDs 2/2 cardiomyopathy -routine PP care 2. Peripartum cardiomyopathy Clinically pt has developed cardiomyopathy with pulmonary edema, LE edema. BNP elevated to 259. Trop WNL. EKG WNL. Echo showed trace MR and TR, but EF 60-65%. Trops WNL. Clinically responded to lasix, and has diuresed about 3000 mL in past 48 hours, off all oxygen -Increase lasix to 60IVP BID -Lisinopril 2.5mg -Atorvastatin 40mg -Cardiology has been consulted, appreciate recs -s/p one dose of spironolactone -Repeat EKG as QTc was mildly prolonged on prior 3. Post-op fever Pt day 5, post-op day 5, now afebrile for 24 hours. No symptoms pointing to particular etiology. CXR showed pulmonary edema, UA trace LE, Blood cx no growth at 24 hours, pt non-tender in abdomen. Could be mastitis as pt breasts are very engorged. -Will continue clinda and gent, but recheck procal and transition to PO abx if able to today -BCX 4. Gestational HTN Pt had multiple BP's > 140/90 in past 24 hours with one > 160 systolic. LFT's, renal function, and platelets WNL this AM. -Will repeat Urine prot:cr ratio -Monitor BP's closely 5. Glucose intolerance -aware -recommend patient be evaluated for DM PP 6. Anemia of -PPH with cEBL 1079 mL and QBL appx 1300 mL -s/p methergine and hemabate -Bleeding now minimal -PO iron BID w/ stool softener -H/H has downtrended today, will monitor closely for symptomatic anemia and transfuse if indicated Dispo: Transfer to telemetry Discussion: Date/Time: 01/14/19 0243 This H&P was discussed with Dr. Barrera who agrees with the above documentation and plan. Signature: Cyn Sepulveda MD, PGY-3
--- NOTE | 2019-01-14 08:28 | RAD ---
PORTABLE CHEST: HISTORY: Followup pneumonia. COMPARISON: 01/13/2019. FINDINGS: Hazy infiltrate in the right mid and lower lung is again seen and is slightly more extensive than on yesterday's portable exam. The left lung appears clear with perhaps some streaky atelectasis in the left lung base seen through the cardiac silhouette. Vascular markings upper normal. Heart size with in normal range. IMPRESSION: Hazy right lung infiltrate, more prominent than on yesterday's exam. POS: ALBERT
[2019-01-14] MEDS: Potassium Chloride 20 MEQ TAB PO SCH ×2 (11:54→18:40)
[2019-01-14] MEDS: Lisinopril 2.5 MG TAB PO SCH (11:54)
[2019-01-14] MEDS: Aspirin 81 mg Enteric Coated Tablet PO SCH (11:54)
[2019-01-14] MEDS: Magnesium Chloride 64 MG TAB PO SCH (11:56)
[2019-01-14] MEDS: Docusate Calcium (SURFAK) 240 MG CAP PO SCH ×2 (11:56→21:30)
[2019-01-14] MEDS: Ferrous Sulfate 325 MG TAB PO SCH ×2 (11:56→21:30)
[2019-01-14] MEDS: Prenatal Vitamin 1 TAB PO SCH (11:56)
[2019-01-14] MEDS: Furosemide 40 MG/4 ML VIAL SLOW IVP SCH ×2 (11:56→13:37)
[2019-01-14] MEDS ORDERED: Lisinopril 2.5 MG TAB PO SCH (13:15)
[2019-01-14] MEDS: Acetaminophen 325 MG TAB PO PRN ×2 (13:40→18:44)
[2019-01-14] MEDS ORDERED: Furosemide 40 MG/4 ML VIAL SLOW IVP SCH (14:00)
[2019-01-14 17:37] LABS: Creatinine, Urine 40.03 mg/dL (47-110)
[2019-01-14] MEDS: Atorvastatin Calcium 40 MG TAB PO SCH ×2 (18:11→21:30)
--- NOTE | 2019-01-14 19:08 | PDOC.EVN ---
Event Note - Event Note Event Note: Spoke with pt at bedside. Pt reports headache since this am w/o relief with tylenol. Also has elevated pressures this AM of >/= 160 and again systolic 162 this afternoon. Pr/Cr urine ratio 0.675. Spoke with pt regarding diagnosis and need for transfer to labor and delivery for mag administration. Pt agreeable. She denies RUQ/Epigastric pain. Denies CP, SOB. No scotoma. Will transfer to L& D for 24 hours magnesium w/ DX of preeclampsia with severe features. Reflexes 3 + w/o clonus.
[2019-01-14] MEDS ORDERED: Magnesium Sulfate 20 gm/500 ml 20 GM/500 ML BAG ONE (19:55)
[2019-01-14] MEDS ORDERED: HYDROcodone/Acetaminophen 5/325 mg Tablet PO PRN (20:56)
[2019-01-14] MEDS ORDERED: Milk Of Magnesia 30 ML UDCUP PO PRN (20:56)
[2019-01-14] MEDS ORDERED: diphenhydrAMINE 25 MG CAP PO PRN (20:56)
[2019-01-14] MEDS ORDERED: Calcium Gluconate 4.6 MEQ in Sodium Chloride 0.9% 100 ML IVPB PRN (20:56)
[2019-01-14] MEDS ORDERED: Preparation H Ointment 28 GM TUBE PR PRN (20:56)
[2019-01-14] MEDS ORDERED: hydrALAZINE 20 MG/ML VIAL SLOW IVP PRN (20:56)
[2019-01-14] MEDS ORDERED: Bisacodyl 10 MG SUPP PR PRN (20:56)
[2019-01-14] MEDS ORDERED: Benzocaine-Menthol 82.5 ML CAN TOP PRN (20:56)
[2019-01-14] MEDS ORDERED: Clindamycin 150 MG CAP PO SCH (21:15)
[2019-01-14] MEDS ORDERED: Magnesium Sulfate 20 GM/WATER 500 ML BAG IVPB SCH (21:15)
[2019-01-14] MEDS: Enoxaparin Sodium 40 MG/0.4 ML SYRINGE SC SCH (21:30)
--- NOTE | 2019-01-15 00:18 | PDOC.EVN ---
Event Note - Event Note Event Note: Pt is a 33 yo F who had a 6 days ago. She is currently on Mag. She reports improved headache. Her reflexes are 1+ throughout with no clonus. BP is in the 130s/80s and she has good urine output with 625 cc over the last 2 hours. No SOB.
[2019-01-15] MEDS: Acetaminophen 325 MG TAB PO PRN ×2 (03:36→12:52)
[2019-01-15] MEDS: Magnesium Sulfate 20 gm/500 ml 20 GM/500 ML BAG IVPB SCH ×2 (04:08→15:32)
[2019-01-15] MEDS: Clindamycin 150 MG CAP PO SCH ×2 (05:47→14:24)
[2019-01-15 06:43] LABS: #Eosinphils 0.1 thou/uL (0.0-0.7); #Lymphocytes 2.2 thou/uL (1.20-3.40); #Monocytes 1.1 thou/uL (0.11-0.59); #Neutrophils 7.6 thou/uL (1.40-6.50); %Basophils 0.1 % (0.0-1.0); %Eosinophils 0.9 % (0.0-10.0); %Lymphocytes 19.8 % (21.0-51.0); %Neutrophils 69.1 % (42.0-75.0); Hemoglobin 10.1 g/dL (12.0-16.0); Mean Corpuscular HGB CONC 32.7 g/dL (32.0-36.0); Mean Corpuscular Hemoglobin 29.6 pg (27.0-31.0); Mean Corpuscular Volume 90.6 fL (78.0-98.0); Mean Platelet Volume 7.3 fL (7.4-10.4); Platelet Count 358 thou/uL (130-400); RBC Distribution Width 12.8 % (11.5-14.5)
[2019-01-15 06:58] LABS: Anion Gap 12 mmol/L (10-20); BUN (Urea Nitrogen) 8 mg/dL (7.0-18.7); Calc. Creatinine Clearance 174 mL/min (70-130); Calcium 7.6 mg/dL (7.8-10.44); Carbon Dioxide 25 mmol/L (22-29); Chloride 103 mmol/L (98-107); Estimated GFR-MDRD Greater than 90; Glucose 115 mg/dL (70-105); Magnesium 6.4 mg/dL (1.6-2.6); Potassium 3.6 mmol/L (3.5-5.1); Sodium 136 mmol/L (136-145)
--- NOTE | 2019-01-15 07:25 | PDOC.OBPPN ---
FMR OB PN: Subj - Interval History Day: #6 s/p pLTCS for persistent category 2 FHT, failure to progress as a 33 y/o @ 40.4 WGA Reports some appropriate incisional pain and mild cramping abdominal pain that is well controlled. Reports minimal lochia. She reports her LE edema has improved significantly. Denies chest pain, SOB, H/A, vision changes, RUQ pain. She is currently off all oxygen. She is pumping breast milk and plans to breast feed when her is d/c'd from nursery. She reports that the breast engorgement has improved. She has been tolerating PO. She reports passing flatus. She had a fever overnight, but reports that it has resolved. She has felt overall poorly on the magnesium feeling very heavy and warm. FMR OB PN: Obj - Maternal Vital signs: BP: 121/97 HR: 85 RR: 22 Tmax: 101.5 Pox: 94% on RA Wt: 82.5kg - Urine output I&O: 01/14/19 01/15/19 01/16/19 06:59 06:59 06:59 Intake Total 1300 980 Output Total 2625 1400 Balance -1325 -420 FMR OB PN: Exam - Physical Exam General: NAD, awake, alert and oriented HEENT: EOMI, MMM, conjunctiva clear, grossly normal vision, grossly normal hearing Neck: supple, no LAD Heart: RRR, normal S1/S2, no murmurs/rubs/gallops, pulses present, other (trace pedal edema bilaterally) General: CTAB, no respiratory distress, good air movement, no rales/rhonchi, no wheezing Abdomen: soft, fundus(cm) (firm 3cm below umbilicus), non-tender Musculoskeletal: normal gait and station, pulses present Neurological: cranial nerves II through XII intact, DTR +2, no clonus, no focal deficit Skin: good tugor, capillary refill <2 seconds : incision healing well, no erythema, no edema, appropriately tender Lymphatic: no unusual bruising or bleeding, no purpura Psychiatric: intact recent and remote memory, good judgement and insight FMR OB PN: Data - Labs Lab results: Laboratory Results - last 24 hr 01/14/19 01/14/19 01/14/19 04:28 16:51 20:04 WBC RBC Hgb Hct MCV MCH MCHC RDW Plt Count MPV Neutrophils % Lymphocytes % Monocytes % Eosinophils % Basophils % Neutrophils # Lymphocytes # Monocytes # Eosinophils # Basophils # Sodium Potassium Chloride Carbon Dioxide Anion Gap BUN Creatinine Estimated GFR (MDRD) Glucose Calcium Magnesium Procalcitonin 0.31 U Random Total Protein 27 H Urine Creatinine 40.03 L Gentamicin Trough Less than 0.5 01/15/19 01/15/19 01/15/19 06:25 06:25 06:25 WBC 11.0 H RBC 3.40 L Hgb 10.1 L Hct 30.8 L MCV 90.6 MCH 29.6 MCHC 32.7 RDW 12.8 Plt Count 358 MPV 7.3 L Neutrophils % 69.1 Lymphocytes % 19.8 L Monocytes % 10.0 Eosinophils % 0.9 Basophils % 0.1 Neutrophils # 7.6 H Lymphocytes # 2.2 Monocytes # 1.1 H Eosinophils # 0.1 Basophils # 0.0 Sodium 136 Potassium 3.6 Chloride 103 Carbon Dioxide 25 Anion Gap 12 BUN 8 Creatinine 0.61 Estimated GFR (MDRD) Greater than 90 Glucose 115 H Calcium 7.6 L Magnesium 6.4 H Procalcitonin 0.23 U Random Total Protein Urine Creatinine Gentamicin Trough FMR OB PN: A/P - Problem List (1) Peripartum cardiomyopathy, Current Visit: Yes Status: Acute Code(s): O90.3 - PERIPARTUM CARDIOMYOPATHY (2) fever Current Visit: Yes Status: Acute Code(s): O86.4 - PYREXIA OF UNKNOWN ORIGIN FOLLOWING DELIVERY (3) S/P primary low transverse Current Visit: Yes Status: Acute Code(s): Z98.891 - HISTORY OF UTERINE SCAR FROM PREVIOUS SURGERY (4) Pre-eclampsia, severe, delivered with condition Current Visit: Yes Status: Acute Code(s): O14.15 - SEVERE PRE-ECLAMPSIA, COMPLICATING THE PUERPERIUM (5) Anemia affecting in third trimester Current Visit: No Status: Acute Code(s): O99.013 - ANEMIA COMPLICATING , THIRD TRIMESTER (6) Glucose intolerance Current Visit: No Status: Acute Code(s): E74.39 - OTHER DISORDERS OF INTESTINAL CARBOHYDRATE ABSORPTION Disposition: 33 yo ->1 s/p pLTCS to an LGA infant. 1. sIUP, delivered via pLTCS. post op day #6 -pph s/p hemabate and methergine, now with minimal bleeding -H/H 12.2/36.7 --> 9.5/29.1->8.7/26.4->10.1/30.8 -cEBL 1079 mL, class II hemorrhage -encourage ambulation -Cont PNV -norco prn pain. Will stop all NSAIDs 2/2 cardiomyopathy -routine PP care 2. Peripartum cardiomyopathy Clinically pt has developed cardiomyopathy with pulmonary edema, LE edema. BNP elevated to 259. Trop WNL. EKG WNL. Echo showed trace MR and TR, but EF 60-65%. Trops WNL. Clinically responded to lasix, and is now off all oxygen and was transferred out of the [facility] -Switch to lasix 20mg po bid -Switched from lisinopril to enalapril due to better data with breast feeding. -Atorvastatin 40mg -Aspirin 81mg daily -Cardiology has been consulted, appreciate recs -s/p one dose of spironolactone 3. Post-op fever Pt had another fever last night to 101.5. No symptoms pointing to particular etiology. CXR showed pulmonary edema, UA trace LE, Blood cx no growth at 24 hours, pt non-tender in abdomen. -BCX -urine strep pneumo to check for pneumonia -switched last night to PO clinda as pt was clinically improving, will re- assess after AM procal and results of urine strep pneumo if this needs to be broadened 4. Pre-eclampsia with Severe features Pt developed a few BPs > 160 systolic and multiple > 140/90. She also had a headache unresolved with tylenol yesterday and a urine protein:creatinine ratio of 0.675. She was started on mag around 8pm on 01/14. LFT's, renal function, and platelets WNL this AM. One elevated BP overnight to 151/74, rest in 120s-130s. -Monitor BP's closely -Continue mag for total of 24 hours -Will monitor closely for fluid overload with additional fluids -Mag checks q4h 5. Glucose intolerance -aware -recommend patient be evaluated for DM PP 6. Anemia of -PPH with cEBL 1079 mL and QBL appx 1300 mL -s/p methergine and hemabate -Bleeding now minimal -PO iron BID w/ stool softener Dispo: Continue to monitor on L&D Discussion: Date/Time: 01/15/19720 This H&P was discussed with Dr. Barrera who agrees with the above documentation and plan. Signature: Cyn Sepulveda MD, PGY-3
[2019-01-15] MEDS: Potassium Chloride 20 MEQ TAB PO SCH ×2 (08:03→17:23)
[2019-01-15 08:18] LABS: Strep pneumo Urine Ag NEGATIVE (NEGATIVE)
[2019-01-15] MEDS: Aspirin 81 mg Enteric Coated Tablet PO SCH (08:39)
[2019-01-15] MEDS: Furosemide 20 MG TAB PO SCH (08:40)
[2019-01-15] MEDS: Prenatal Vitamin 1 TAB PO SCH (08:45)
[2019-01-15] MEDS: Ferrous Sulfate 325 MG TAB PO SCH ×2 (08:45→22:14)
[2019-01-15] MEDS: Docusate Calcium (SURFAK) 240 MG CAP PO SCH ×2 (08:47→21:22)
[2019-01-15] MEDS ORDERED: Lisinopril 2.5 MG TAB PO SCH ×3 (09:00→09:30)
[2019-01-15] MEDS ORDERED: Lisinopril 5 MG TAB PO SCH (09:00)
[2019-01-15 09:05] LABS: ALT (SGPT) 17 U/L (8-55); AST (SGOT) 15 U/L (5-34); Alkaline Phosphatase 142 U/L (40-150); Bilirubin, Total 0.2 mg/dL (0.2-1.2); Globulin 3.1 g/dL (2.4-3.5); Protein, Total 6.1 g/dL (6.0-8.3)
--- NOTE | 2019-01-15 12:12 | PDOC.EVN ---
Event Note - Event Note Event Note: This is a 33 yo POD 6 pLTCS currently on magnesium for pre-eclampsia Subjective: Pt states her headache is worse and she things the magnesium is making it worse. She denies nausea, vomiting, or SOB Objective: Lungs: improved air movement and breath sounds Cardio: RRR Neuro: DTR 2+ no clonus Vital signs: BPs have been systolic 120s-130s and diastolic 71-97 Urine output: adequate A/P PP preeclampsia, continue magnesium checks q4 hours. Clinical pp cardiomyopathy -Continue monitoring fluid balance while on magnesium
--- NOTE | 2019-01-15 15:18 | PDOC.EVN ---
Event Note - Event Note Event Note: This is a 33 yo POD 6 pLTCS currently on magnesium for pre-eclampsia Subjective: She denies nausea, vomiting, or SOB. She states her headache is better. Objective: Lungs: CTAB, no adventitious sounds Cardio: RRR Neuro: DTR 2+ no clonus, no confusion, fluent speech Vital signs: BPs stable, range 127/65-136/83 Urine output: 200-400/hr Last mag level was 6.2 A/P PP preeclampsia, continue magnesium checks q4 hours. -Decrease magnesium infusion to 1mg/hr Clinical pp cardiomyopathy -Continue monitoring fluid balance while on magnesium
--- NOTE | 2019-01-15 21:11 | PDOC.EVN ---
Event Note - Event Note Event Note: Pt magnesium discontinued and pressures normal. Denies headache, changes in vision, RUQ epigastric pain, cp, and sob. Reflexes 1-2+. UOP 75 mls/hr down from 350-400 mls/hr over a span of 4 hours this afternoon. Will plan for transfer to .
[2019-01-15] MEDS: valACYclovir 500 MG TAB PO SCH (21:21)
[2019-01-15] MEDS: Atorvastatin Calcium 40 MG TAB PO SCH (21:22)
[2019-01-15] MEDS: Enoxaparin Sodium 40 MG/0.4 ML SYRINGE SC SCH (21:22)
[2019-01-16] MEDS: Clindamycin 150 MG CAP PO SCH ×4 (00:37→21:38)
[2019-01-16 05:47] LABS: Anion Gap 11 mmol/L (10-20); BUN (Urea Nitrogen) 13 mg/dL (7.0-18.7); Calc. Creatinine Clearance 169 mL/min (70-130); Calcium 7.8 mg/dL (7.8-10.44); Carbon Dioxide 26 mmol/L (22-29); Chloride 104 mmol/L (98-107); Estimated GFR-MDRD Greater than 90; Glucose 87 mg/dL (70-105); Potassium 4.3 mmol/L (3.5-5.1); Sodium 137 mmol/L (136-145)
--- NOTE | 2019-01-16 07:16 | PDOC.OBPPN ---
FMR OB PN: Subj - Interval History Day: #7 s/p pLTCS for persistent category 2 FHT, failure to progress as a 33 y/o @ 40.4 WGA Reports that her pain is well controlled. Reports minimal lochia. She reports her LE edema has resolved. Denies chest pain, SOB, H/A, vision changes, RUQ pain. She is pumping breast milk and plans to breast feed when her is d/ c'd from nursery. She reports that the breast engorgement has improved. She has been tolerating PO. She reports passing flatus. She reports yesterday she developed a fever blister on her upper lip. FMR OB PN: Obj - Maternal Vital signs: BP: 139/83 HR: 86 RR: 24 Tmax: 98.8 Pox: 96% on RA Wt: 82.5kg - Urine output I&O: 01/15/19 01/16/19 01/17/19 06:59 06:59 06:59 Intake Total 980 Output Total 1400 Balance -420 FMR OB PN: Exam - Physical Exam General: NAD, awake, alert and oriented HEENT: normocephalic and atraumatic, EOMI, MMM, conjunctiva clear, no scleral icterus, grossly normal vision, grossly normal hearing, other (4mm raised lesion on upper lip) Neck: supple, no LAD Heart: RRR, normal S1/S2, no murmurs/rubs/gallops, pulses present, no edema General: CTAB, no respiratory distress, good air movement, no rales/rhonchi, no wheezing Abdomen: soft, fundus(cm) (firm 3cm below umbilicus), non-tender Musculoskeletal: normal gait and station, FROM in all four extremities Neurological: cranial nerves II through XII intact, no clonus, no focal deficit Skin: good tugor, capillary refill <2 seconds : incision healing well, no erythema, no edema, no drainage, appropriately tender Lymphatic: no unusual bruising or bleeding, no purpura Psychiatric: intact recent and remote memory, good judgement and insight FMR OB PN: Data - Labs Lab results: Laboratory Results - last 24 hr 01/14/19 01/15/19 01/15/19 16:51 06:25 06:25 Sodium 136 Potassium 3.6 Chloride 103 Carbon Dioxide 25 Anion Gap 12 BUN 8 Creatinine 0.61 Estimated GFR (MDRD) Greater than 90 Glucose 115 H Calcium 7.6 L Magnesium 6.4 H Total Bilirubin 0.2 AST 15 ALT 17 Alkaline Phosphatase 142 B-Natriuretic Peptide Serum Total Protein 6.1 Albumin 3.0 L Globulin 3.1 Albumin/Globulin Ratio 1.0 L Procalcitonin 0.23 Ur Strep pneumoniae Ag NEGATIVE 01/15/19 01/15/19 01/15/19 06:25 10:31 14:33 Sodium Potassium Chloride Carbon Dioxide Anion Gap BUN Creatinine Estimated GFR (MDRD) Glucose Calcium Magnesium 6.5 H 6.2 H Total Bilirubin AST ALT Alkaline Phosphatase B-Natriuretic Peptide 48.8 Serum Total Protein Albumin Globulin Albumin/Globulin Ratio Procalcitonin Ur Strep pneumoniae Ag 01/16/19 05:09 Sodium 137 Potassium 4.3 Chloride 104 Carbon Dioxide 26 Anion Gap 11 BUN 13 Creatinine 0.63 Estimated GFR (MDRD) Greater than 90 Glucose 87 Calcium 7.8 Magnesium Total Bilirubin AST ALT Alkaline Phosphatase B-Natriuretic Peptide Serum Total Protein Albumin Globulin Albumin/Globulin Ratio Procalcitonin Ur Strep pneumoniae Ag FMR OB PN: A/P - Problem List (1) Peripartum cardiomyopathy, Current Visit: Yes Status: Acute Code(s): O90.3 - PERIPARTUM CARDIOMYOPATHY (2) fever Current Visit: Yes Status: Acute Code(s): O86.4 - PYREXIA OF UNKNOWN ORIGIN FOLLOWING DELIVERY (3) S/P primary low transverse Current Visit: Yes Status: Acute Code(s): Z98.891 - HISTORY OF UTERINE SCAR FROM PREVIOUS SURGERY (4) Pre-eclampsia, severe, delivered with condition Current Visit: Yes Status: Acute Code(s): O14.15 - SEVERE PRE-ECLAMPSIA, COMPLICATING THE PUERPERIUM (5) Anemia affecting in third trimester Current Visit: No Status: Acute Code(s): O99.013 - ANEMIA COMPLICATING , THIRD TRIMESTER (6) Glucose intolerance Current Visit: No Status: Acute Code(s): E74.39 - OTHER DISORDERS OF INTESTINAL CARBOHYDRATE ABSORPTION (7) Herpes labialis Current Visit: Yes Status: Acute Code(s): B00.1 - HERPESVIRAL VESICULAR DERMATITIS Disposition: 33 yo ->1 s/p pLTCS to an LGA . 1. sIUP, delivered via pLTCS. post op day #7 -pph s/p hemabate and methergine, now with minimal bleeding -H/H 12.2/36.7 --> 9.5/29.1->8.7/26.4->10.1/30.8 -cEBL 1079 mL, class II hemorrhage -encourage ambulation -Cont PNV -norco prn pain. Will stop all NSAIDs 2/2 cardiomyopathy -routine PP care 2. Peripartum cardiomyopathy Clinically pt has developed cardiomyopathy with pulmonary edema, LE edema. BNP elevated to 259. Trop WNL. EKG WNL. Echo showed trace MR and TR, but EF 60-65%. Trops WNL. Clinically responded to lasix, and is now off all oxygen and was transferred out of the [facility]. -Lasix decreased to 20mg po -Lisinopril 5mg -Atorvastatin 40mg -Aspirin 81mg daily -Cardiology has been consulted, appreciate recs -s/p one dose of spironolactone 3. Post-op fever Appears to have resolved. Afebrile over 24 hours. No symptoms pointing to particular etiology. CXR showed pulmonary edema, UA trace LE, Blood cx no growth at 24 hours, pt non-tender in abdomen. -BCX -PO clindamycin 4. Pre-eclampsia with Severe features Pt developed a few BPs > 160 systolic and multiple > 140/90. She also had a headache unresolved with tylenol yesterday and a urine protein:creatinine ratio of 0.675. She was started on mag around 8pm on 01/14. She is now off Mag and doing well with BP's well controlled. LFT's, renal function, and platelets WNL this AM. -Monitor BP's closely 5. Glucose intolerance -aware -recommend patient be evaluated for DM PP 6. Anemia of -PPH with cEBL 1079 mL and QBL appx 1300 mL -s/p methergine and hemabate -Bleeding now minimal -PO iron BID w/ stool softener 7. HSV labialis Pt developed HSV lesion on upper lip -Valtrex -Contact Precautions when interacting with including mask, gown, gloves Dispo: Continue to monitor on post-, but anticipate d/c home within the next 24-48 hours. Discussion: Date/Time: 01/16/19711 This H&P was discussed with Dr. Barrera who agrees with the above documentation and plan. Signature: Cyn Sepulveda MD, PGY-3
[2019-01-16] MEDS ORDERED: Lisinopril 2.5 MG TAB PO SCH (09:00)
[2019-01-16] MEDS: Docusate Calcium (SURFAK) 240 MG CAP PO SCH ×2 (10:05→21:38)
[2019-01-16] MEDS: Aspirin 81 mg Enteric Coated Tablet PO SCH (10:05)
[2019-01-16] MEDS: Potassium Chloride 20 MEQ TAB PO SCH (10:05)
[2019-01-16] MEDS: Lisinopril 5 MG TAB PO SCH (10:06)
[2019-01-16] MEDS: Prenatal Vitamin 1 TAB PO SCH (10:06)
[2019-01-16] MEDS: Furosemide 20 MG TAB PO SCH (10:06)
[2019-01-16] MEDS: valACYclovir 500 MG TAB PO SCH (10:09)
[2019-01-16] MEDS: Ferrous Sulfate 325 MG TAB PO SCH ×2 (13:10→21:37)
[2019-01-16] MEDS: Enoxaparin Sodium 40 MG/0.4 ML SYRINGE SC SCH (21:34)
[2019-01-16] MEDS: Atorvastatin Calcium 40 MG TAB PO SCH (21:38)
[2019-01-17] MEDS: Clindamycin 150 MG CAP PO SCH (06:49)
[2019-01-17] MEDS: Magnesium Chloride 64 MG TAB PO SCH (07:34)
[2019-01-17] MEDS: Furosemide 20 MG TAB PO SCH ×2 (07:34→09:21)
--- NOTE | 2019-01-17 08:31 | PDOC.PP ---
Post Progress Note Post Day #: 8 Subjective: This morning patient denies SOB, palpitations, or chest pain. She states she is ambulating well and not getting short of breath when walking back and forth from the NICU. She denies cough, sputum production, or fever. She denies cramping, bleeding, or discharge. She states she has been pumping without pain or discomfort every 2-3 hours. Patient is quite anxious to go home. PO intake tolerated: yes Flatus: yes Ambulation: yes Vital Signs (12 hours) Temp Pulse Resp BP BP 01/17/19 01:55 98.3 F 61 17 137/70 01/17/19 01:37 98.3 F 63 17 163/75 H 01/16/19 21:30 98.7 F 73 16 157/89 H Weight Weight 65.317 kg Most Recent Monitor Data Heart Rate from ECG 90 NIBP 160/96 NIBP BP-Mean 117 Respiration from ECG 22 SpO2 97 - Physical Examination General: NAD Cardiovascular: no m/r/g, RRR Respiratory: clear to auscultation bilaterally, non-labored breathing Abdominal: + bowel sounds, lochia, no distention, appropriately TTP Extremities: negative homans (B) Skin: CS incision dry & intact, no rash Deviation from normal: fever blister totally resolved Neurological: no gross focal deficits Psychiatric: A&Ox3, normal affect Result Diagrams: 01/17/19 08:45 01/17/19 08:45 Additional Labs: Post Labs Blood Type O POSITIVE 01/09/19 03:00 Hep Bs Antigen Non-Reactive S/CO (NonReactive) 01/09/19 00:53 (1) Herpes labialis Code(s): B00.1 - HERPESVIRAL VESICULAR DERMATITIS Status: Acute (2) Peripartum cardiomyopathy, Code(s): O90.3 - PERIPARTUM CARDIOMYOPATHY Status: Acute (3) fever Code(s): O86.4 - PYREXIA OF UNKNOWN ORIGIN FOLLOWING DELIVERY Status: Acute (4) Pre-eclampsia, severe, delivered with condition Code(s): O14.15 - SEVERE PRE-ECLAMPSIA, COMPLICATING THE PUERPERIUM Status: Acute (5) S/P primary low transverse Code(s): Z98.891 - HISTORY OF UTERINE SCAR FROM PREVIOUS SURGERY Status: Acute (6) hemorrhage Code(s): O72.1 - OTHER IMMEDIATE HEMORRHAGE Status: Acute - Assessment/Plan 33 yo ->1 s/p pLTCS to an LGA infant. PP day 8 1. sIUP, delivered via pLTCS. post op day #8 -pph s/p hemabate and methergine, now with minimal bleeding -H/H 12.2/36.7 --> 9.5/29.1->8.7/26.4->10.1/30.8 -cEBL 1079 mL, class II hemorrhage -norco prn pain. Stopped all NSAIDs 2/2 cardiomyopathy -routine PP care 2. Peripartum cardiomyopathy Developed cardiomyopathy with pulmonary edema, LE edema. BNP elevated to 259. Trop WNL. EKG WNL. Echo showed trace MR and TR, but EF 60-65%. Trops WNL. - Repeat Echo this AM to trend EF and evaluate for structural defects Clinically responded to lasix, and is now off all oxygen -Lasix decreased to 20mg po -Lisinopril 5mg -Atorvastatin 40mg -Aspirin 81mg daily -Cardiology has been consulted, appreciate recs -s/p one dose of spironolactone 3. Post-op fever Appears to have resolved. Afebrile over 48 hours. Blood cx no growth at 48 hours , pt non-tender in abdomen. -PO clindamycin 4. Pre-eclampsia with Severe features Pt developed a few BPs > 160 systolic and multiple > 140/90. protein:creatinine ratio of 0.675. She was started on mag around 8pm on 01/14. She is now off Mag >24 hours - she did have 1 severe range pressure overnight but denies symptoms 5. Glucose intolerance -aware -recommend patient be evaluated for DM PP 6. Anemia of -PPH with cEBL 1079 mL and QBL appx 1300 mL -s/p methergine and hemabate -Bleeding now resolved -PO iron BID w/ stool softener 7. HSV labialis Pt developed HSV lesion on upper lip, resolved -Valtrex -Contact Precautions when interacting with including mask, gown, gloves d/c meds included lasix 20mg po daily, lisinopril 5mg daily, atorvastatin 40mg daily Dispo: d/c today
[2019-01-17 08:51] LABS: Hemoglobin 10.5 g/dL (12.0-16.0); Mean Corpuscular HGB CONC 33.3 g/dL (32.0-36.0); Mean Corpuscular Hemoglobin 30.7 pg (27.0-31.0); Mean Corpuscular Volume 92.4 fL (78.0-98.0); Mean Platelet Volume 6.5 fL (7.4-10.4); Platelet Count 431 thou/uL (130-400); RBC Distribution Width 13.1 % (11.5-14.5); Red Blood Cell (RBC) Count 3.42 mill/uL (4.20-5.40); White Blood Cell (WBC) Count 10.4 thou/uL (4.8-10.8)
[2019-01-17 09:13] LABS: ALT (SGPT) 19 U/L (8-55); AST (SGOT) 21 U/L (5-34); Albumin 3.2 g/dL (3.5-5.0); Alkaline Phosphatase 127 U/L (40-150); Anion Gap 12 mmol/L (10-20); BUN (Urea Nitrogen) 11 mg/dL (7.0-18.7); Bilirubin, Total 0.3 mg/dL (0.2-1.2); Calc. Creatinine Clearance 142 mL/min (70-130); Calcium 8.9 mg/dL (7.8-10.44); Carbon Dioxide 24 mmol/L (22-29); Chloride 108 mmol/L (98-107); Estimated GFR-MDRD Greater than 90; Globulin 3.1 g/dL (2.4-3.5); Glucose 85 mg/dL (70-105); Potassium 4.1 mmol/L (3.5-5.1); Protein, Total 6.3 g/dL (6.0-8.3); Sodium 140 mmol/L (136-145)
[2019-01-17] MEDS: Docusate Calcium (SURFAK) 240 MG CAP PO SCH (09:21)
[2019-01-17] MEDS: Ferrous Sulfate 325 MG TAB PO SCH (09:21)
[2019-01-17] MEDS: Prenatal Vitamin 1 TAB PO SCH (09:21)
[2019-01-17] MEDS: Lisinopril 5 MG TAB PO SCH (09:21)
[2019-01-17] MEDS: Aspirin 81 mg Enteric Coated Tablet PO SCH (09:22)
[2019-01-17 09:55] VITALS: BP 122/81; TEMP 98
--- NOTE | 2019-01-18 01:25 | DIS ---
DATE OF ADMISSION: 01/08/2019 DATE OF DISCHARGE: 01/17/2019 ADMITTING ATTENDING: Candelario Mehta MD DISCHARGE ATTENDING: Jazmin Barrera MD ATTENDING: Jazmin Barrera. RESIDENT: Cyn Sepulveda MD. CONSULTS: Dr. Espana of Cardiology, Dr. Stewart of Pulmonology. PROCEDURE: Primary low transverse section on 01/09/2019. IMAGING STUDIES: 1. Bilateral lower extremity Doppler ultrasound showed no evidence of DVT in either lower extremity. 2. Chest x-ray on 01/12/2019, showed small bilateral pleural effusions and cardiac silhouette appeared enlarged. 3. Chest x-ray on 01/13/2019, showed interstitial and alveolar opacities bilaterally, greater on the right, may be related to asymmetric pulmonary edema versus infectious process. 4. Echocardiogram showed ejection fraction 60% to 65%. Trace mitral regurgitation. Trace tricuspid regurgitation. No evidence of pericardial effusion. 5. Chest x-ray on 01/13/2019, showed right lower lobe airspace opacity. 6. Chest x-ray on 01/14/2019, showed hazy right lung infiltrate, more prominent than on yesterday's exam. PRIMARY DIAGNOSES: 1. Term intrauterine , delivered. 2. Peripartum cardiomyopathy. 3. Preeclampsia with severe features. 4. Postoperative fever. 5. hemorrhage. 6. Herpes labialis. 7. Anemia of . 8. Glucose intolerance. 9. Status post primary low-transverse section. DISCHARGE MEDICATIONS: 1. Aspirin 81 mg p.o. daily. 2. Atorvastatin 40 mg p.o. at bedtime. 3. Docusate 240 mg p.o. b.i.d. 4. Ferrous sulfate 325 mg p.o. b.i.d. 5. Lasix 20 mg p.o. daily. 6. [place] 5/325 one tablet p.o. q.6 hours p.r.n., dispense #10. 7. Lisinopril 5 mg p.o. daily. 8. vitamin 1 p.o. daily. DISCONTINUED MEDICATIONS: None. HISTORY OF PRESENT ILLNESS/HOSPITAL COURSE: This is a 33-year-old, G1, P0, now 1, who presented for induction of labor at 40 weeks and 3 days on 01/08/2019. The fetus had persistent category 2 heart tones throughout the induction process and the patient failed to dilate past 5 cm despite several hours of induction. The decision was made to proceed with a primary low transverse section at 40 weeks 4 days gestation. The patient was properly consented and agreed to this. This was complicated by hemorrhage. The QBL was 1330 mL. The patient received 0.25 mg Hemabate and 0.2 mg Methergine along with the Pitocin. Following this, the patient had minimal bleeding throughout her hospitalization. The patient has a normal course up until 01/12/2019, which was day #3. The patient developed a postop fever, had a full workup done for this including chest x-ray, urinalysis, and blood cultures, which were largely normal. She was started on clindamycin and gentamicin for empiric coverage. The patient later that day, began developing worsened edema of her lower extremities. She had a LE Doppler done that was normal and the swelling continued to progress. She received a dose of Lasix 40 mg p.o. By that early evening, the swelling had progressed all the way up to her knees bilaterally and so, she was given another dose of 20 mg IV of Lasix and a stat echocardiogram was ordered. Around 3:30 in the morning on 01/13/2019, the patient had dropped her O2 sats into the 80s and was very tachypneic to the 30s and 40s. She was given another dose of Lasix 40 mg IV. A repeat chest x-ray was done that showed worsened pulmonary edema and repeat BNP was done that was 259, up from 99 the day prior. The patient was started on face mask with 15 L of oxygen and improved with these therapies. The patient had been transferred to the [facility] and she remained there on oxygen. Dr. Stewart with Pulmonology was consulted, and Dr. Espana with Cardiology was consulted. The echocardiogram was structurally normal with an ejection fraction of 60% to 65%. However, it was still suspected that the patient had peripartum cardiomyopathy due to the rapid progression and rapid improvement with Lasix. The patient was started on aspirin, atorvastatin, and lisinopril. She was able to be weaned off oxygen within about a day and then was transferred out of the [facility]. The patient did at this time have a QTc that was prolonging to almost 500, however, this resolved on repeat EKG. The patient throughout that day had elevated blood pressures to the 140s with one in the 160 systolic. A repeat urine protein creatinine ratio was performed that was 0.675 and later on 01/14, the day, she had another systolic above 160 as well as a headache, not relieved with Tylenol. The patient was started on magnesium on 01/14/2019, and continued this for 24 hours. The patient did not tolerate the magnesium well as she started feeling very poorly on it. Her blood pressures have stayed very well controlled while she was on magnesium, so the magnesium was able to be stopped after 24 hours. The patient was then transferred to and she had been switched to p.o. clindamycin as she had had one repeat fever after the first one, but then had remained fever free. The patient tolerated this transition well. On 01/15 , the patient developed a cold sore. She had a history of herpes labialis and so she was instructed to have precautions when interacting with her who was in the NICU and was started on acyclovir. The patient was able to be discharged home on 01/17/2019, with continuing her on atorvastatin, aspirin, and lisinopril as well as Lasix. The patient at the time of discharge had no edema in her lower extremities and her lungs were clear to auscultation. She was saturating well on room air. She was no longer bleeding and her pain was well controlled, and her blood pressures have been well controlled since stopping the magnesium. The patient will follow up closely in clinic and there was a repeat echo done on her day of discharge that has not been read yet , so this will be followed up with as well. DISPOSITION: Stable. DISCHARGE INSTRUCTIONS: 1. Location: Home. 2. Diet: Regular. 3. Activity: As tolerated. 4. Follow up with Dr. Sepulveda in 1 week. Job ID: [id number] MTDD
--- NOTE | 2019-01-20 22:29 | EKG ---
Test Reason : Blood Pressure : / mmHG Vent. Rate : 060 BPM Atrial Rate : 060 BPM P-R Int : 146 ms QRS Dur : 074 ms QT Int : 420 ms P-R-T Axes : 005 048 043 degrees QTc Int : 420 ms Normal sinus rhythm with sinus arrhythmia Normal ECG When compared with ECG of 13-JAN-2019 08:21, No significant change was found Confirmed by Gabriela WANG ([id number]) on 01/20/2019 10:29:21 PM Referred By: PALOMA Confirmed By:Gabriela WANG
--- NOTE | 2019-01-20 22:34 | EKG ---
Test Reason : Blood Pressure : / mmHG Vent. Rate : 082 BPM Atrial Rate : 082 BPM P-R Int : 136 ms QRS Dur : 068 ms QT Int : 372 ms P-R-T Axes : 037 066 056 degrees QTc Int : 434 ms Normal sinus rhythm Normal ECG When compared with ECG of 13-JAN-2019 08:21, No significant change was found Confirmed by Gabriela WANG ([id number]) on 01/20/2019 10:34:10 PM Referred By: Shane SrinivasanR Confirmed By:Gabriela WANG
--- NOTE | 2019-01-20 22:38 | EKG ---
Test Reason : Blood Pressure : / mmHG Vent. Rate : 096 BPM Atrial Rate : 096 BPM P-R Int : 148 ms QRS Dur : 078 ms QT Int : 390 ms P-R-T Axes : 041 073 044 degrees QTc Int : 492 ms Normal sinus rhythm Prolonged QT Abnormal ECG When compared with ECG of 14-JAN-2019 11:45, (Unconfirmed) QT has lengthened Confirmed by Gabriela WANG ([id number]) on 01/20/2019 10:38:29 PM Referred By: Lashaun PAL Confirmed By:Gabriela WANG
--- NOTE | 2019-01-20 22:39 | EKG ---
Test Reason : REPEAT Blood Pressure : / mmHG Vent. Rate : 089 BPM Atrial Rate : 089 BPM P-R Int : 144 ms QRS Dur : 068 ms QT Int : 386 ms P-R-T Axes : 049 070 051 degrees QTc Int : 469 ms Normal sinus rhythm Normal ECG When compared with ECG of 15-JAN-2019 07:39, (Unconfirmed) No significant change was found Confirmed by Gabriela WANG ([id number]) on 01/20/2019 10:39:12 PM Referred By: Lashaun PAL Confirmed By:Gabriela WANG
== END 2019-01-17 12:46 | disposition home or self-care (01) | DRG 786 ==
LOC: L&D 22:27 → 3SW 01-09 21:17 → IMCU/EMU 01-13 04:33 → L&D 01-14 19:48 → 3SW 01-15 22:47
PROVIDERS: ADMIT Family Medicine; ATTEND Family Medicine
PROC: 10D00Z1 Extraction of Products of Conception, Low, Open Approach (ICD-10-PCS; principal; 2019-01-09)
DX: O99.02 Anemia complicating childbirth (principal); O90.3 Peripartum cardiomyopathy; J81.0 Acute pulmonary edema; O72.1 Other immediate postpartum hemorrhage; J90 Pleural effusion, not elsewhere classified; O86.4 Pyrexia of unknown origin following delivery; O98 Maternal infectious and parasitic diseases classifiable elsewhere but complicating pregnancy, childbirth and the puerperium; O76 Abnormality in fetal heart rate and rhythm complicating labor and delivery; O66.40 Failed trial of labor, unspecified; D64.9 Anemia, unspecified; Z3A.40 40 weeks gestation of pregnancy; Z37.0 Single live birth; E74.39 Other disorders of intestinal carbohydrate absorption; O99.284 Endocrine, nutritional and metabolic diseases complicating childbirth; O99.53 Diseases of the respiratory system complicating the puerperium; O13.5 Gestational [pregnancy-induced] hypertension without significant proteinuria, complicating the puerperium; B00.1 Herpesviral vesicular dermatitis; O14.15 Severe pre-eclampsia, complicating the puerperium; Z88.0 Allergy status to penicillin; O48.0 Post-term pregnancy; K21.9 Gastro-esophageal reflux disease without esophagitis
CPT/HCPCS: 36415; 51702; 71045; 71046; 80048; 80053; 80061; 80170; 81001; 82570; 83735; 83880; 84100; 84145; 84156; 84443; 84484; 85025; 85027; 86780; 86850; 86900; 86901; 87040; 87340; 87449; 88307; 93005; 93010; 93306; 93970; A4353; J0456; J0670; J0690; J1200; J1580; J1650; J1885; J1940; J2001; J2210; J2250; J2270; J2274; J2405; J2590; J3475; J3490